=== PATIENT | female | born 1975 | race Caucasian/White ===

== ENCOUNTER 2023-12-14 13:55 | Outpatient (AMB) | payer MEDICARE, MEDICAID, SELFPAY ==
--- NOTE | 2023-12-14 13:58 | A.OFFVIS_ITS ---
Vital Signs 12/14/23 14:02 Height 5 ft 7 in Weight 140 lb BMI 21.9 BP 130/82 Blood Pressure Location Rt brachial Position Sitting Pulse 89 Pulse Source Pulse Oximeter Pulse Oximetry (%) 94 Oxygen Delivery Method Room Air Intake Visit Reasons: [id number] Intake Note: Patient presents for migraines. I get migraines all the time since the age of 18. Allergies No Known Allergies Allergy (Verified 12/14/23 14:03) Medication List - Last Reconciled 12/14/23 by RAGHAVENDRA Tran albuterol sulfate 90 mcg/actuation inhalation buprenorphine-naloxone 8-2 mg 2 film sublingual DAILY ibuprofen 800 mg PO TID promethazine 25 mg PO Q12H PRN HPI Comments Details: Right-handed 48-yr-old female presents for new pt evaluation of headache disorder. Pt reports she has had headaches since adolescence which became migraine after she had her 1st child at age 18. She was previosuly seen by ? Dr Finley a few yrs ago, but was lost to f/u w/ us as she thought Dr Finley retired. She returns in hopes of resuming of resuming Botox tx as this was effective in the past. She has recently rec'd cosmetic botox- states does this as it helps the migraines some but is not enough. PMH and ROS are notable for:? Musculoskeletal disorders or injury: Neck pain during migraines, but otherwise no usual neck pain. 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 May clench her teeth at times Caffeine use: 1 cups per day Substance use: none Exercise:?walks a lot Employment:?not currently working Headache questionnaire:? Previous work-up: None Typical headache characteristics: Prodrome symptoms: Denies Aura: Denies Pain intensity: severe Location, quality, characteristics: Starts with neck soreness and moves to a pressure in her one or both eyes and frontal region and becomes holocranial pain. Associated symptoms: photophobia, phonophobia, osmophobia, allodynia, nausea, vomiting, chills, lightheadedness, fatigue, cognitive difficulties, activity intolerance, Postdrome: feels off the next day Triggers: No known triggers. In the past had menstrual migraine, but not now. Time of day: Usually feels it coming on when she first wakes up. Duration and Frequency: 24 hrs, has > 20 migraine days per month How does headache impact your life? Cannot do her daily activities Current acute medication use/interventions: Ibuprofen 800mg- it does not help Current preventative medication use: None Non-pharmacological interventions: Rest in dark/quiet space, Ice. Heat to neck. [facility] Medical History (Updated 12/16/23 @ 16:04 by RAGHAVENDRA Tran) Opioid dependence on maintenance agonist therapy, no symptoms Palpitations Mold exposure Anxiety Asthma Surgical History (Updated 12/14/23 @ 14:05 by JG Mortensen) H/O shoulder surgery Social History (Updated 12/14/23 @ 14:05 by JG Mortensen) Alcohol intake: never Patient Tobacco Use Status: Never used Tobacco Physical Exam Vital Signs: Last Vital Signs Pulse 89 12/14/23 14:02 BP 130/82 12/14/23 14:02 Pulse Ox 94 12/14/23 14:02 Oxygen Delivery Method Room Air 12/14/23 14:02 BMI result Body Mass Index 21.9 Const Orientation/consciousness: patient oriented x3 Resp Effort & Inspection: normal respiratory effort and able to speak in complete sentences Neuro Other: Pt has limited eyebrow/frontal muscle movement- has recently rec'd cosmetic botox. No palpable scalp tenderness. Bilateral posterior cervical tightness. Cervical ROM: full Bilateral Spurling: elicits discomfort into bilateral upper traps. General: patient oriented x3 Cranial nerves: Yes CN's II-XII intact bilaterally Cognition (Neuro): normal cognition Gait exam (Neuro): Normal gait present Motor exam (neuro): 5/5 motor strength present throughout Deep tendon reflexes (DTR's): Right triceps reflex intensity grade: 2+, Left triceps reflex intensity grade: 2+, Rt Biceps (C5, C6): 2+, Left biceps reflex intensity grade: 2+, Right brachioradialis reflex intensity grade: 2+, Left brachioradialis reflex intensity grade: 2+, Right patellar reflex intensity grade: 2+ and Left patellar reflex intensity grade: 2+ Coordination: [id number] test normal, tandem gait normal and Romberg test negative Pupils: Normal pupillary reactivity/response: bilateral Psych Appearance: grossly normal Mental Status: mental status grossly normal Speech and movement: Normal speech and movement present Affect: normal affect Attitude: cooperative Thought process: Normal thought process present Assessment & Plan Assessment & Plan (1) Chronic migraine without aura: Code(s): G43.709 - Chronic migraine without aura, not intractable, without status mi grainosus Category: Medical (2) Cervical paraspinal muscle spasm: Code(s): M62.838 - Other muscle spasm Category: Medical Plan For overall headache management: * Optimize good self-care, including but not limited to maintaining a healthy diet, adequate fluid intake, adequate sleep, and engaging in regular physical activity. * Track headaches, especially after any treatment regimen changes. Aneumed is one of many headache tracking apps. For acute headache treatment: Discussed importance of taking acute medications at the first sign of headache, however stressed importance of avoiding acute medication overuse. Trial Zolmitriptan 5mg prn, MR in 2 hrs, Max 2 tabs per day. Ibuprofen prn. Potential adverse effects of triptans, including but not limited to nausea, fatigue, chest tightness/tingling (usually passes within a few minutes), medication overuse headaches. Previous acute migraine medication trials: Triptan: Sumatriptan 100mg- ineffective. Nurtec prn: ineffective. Believes she has tried otehrs- but cannot recall. Acute migraine medication contraindications: None at this time For headache prevention medication: Preventative medications should be taken routinely as prescribed for best effect, it may take several weeks for full effect to take effect. Start Riboflavin 400mg qam Resume Botox 155 units IM q 12 weeks, as this was previously effective- her last course of Botox for CM was > 2 yrs ago. Previous migraine prevention medication trials: Amitriptyline: did not tolerate. Propranolol: made her hypotensive. Topiramate: did not tolerate. CGRP Mab/antagonist: Emgality x's 2- ineffective. Magnesium- caused GI upset. Migraine prevention medication contraindications: Beta-blockers d/t asthma dx. Will schedule pt for Botox when prior auth approved. 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 Medications: New onabotulinumtoxinA (Botox) inject 155 units IM across forehead, scalp, and neck 200 units IM ONCE 1 ea 3RF 12 weeks G43.709 - Chronic migraine without aura, not intractable, without status migrainosus riboflavin (vitamin B2) 400 mg PO DAILY 30 tabs 6RF 30 days zolmitriptan take 1 tab at onset of headache; if no relief, may repeat 1 tab after at least 2 hrs; max = 2 tabs/24 hrs PO 12 tabs 3RF 30 days Coding Level of Care Code New Pt Level 4 (34018) Diagnoses Chronic migraine without aura G43.709 Cervical paraspinal muscle spasm M62.838
[2023-12-14 14:02] VITALS: BP 130/82; PULSE 89; O2SAT 94; BMI 21.9
== END 2023-12-14 15:13 | disposition home or self-care (01) ==
PROVIDERS: PCP Internal Medicine; Visit Provider Nurse Practitioner Family
DX: G43.709 Chronic migraine without aura, not intractable, without status migrainosus (principal); M62.838 Other muscle spasm
CPT/HCPCS: 99204

== ENCOUNTER → 2023-12-14 13:55 | Outpatient (BNVA) | payer MEDICARE, MEDICAID, SELFPAY | PROVIDERS: PCP Internal Medicine; Visit Provider Nurse Practitioner Family | DX: G43.709 Chronic migraine without aura, not intractable, without status migrainosus (principal); M62.838 Other muscle spasm | CPT/HCPCS: 99202 ==

== ENCOUNTER 2023-12-26 08:36 | Outpatient (AMB) | payer MEDICARE, MEDICAID, SELFPAY ==
--- NOTE | 2023-12-26 08:39 | A.OFFVIS_ITS ---
Vital Signs 12/26/23 08:40 Height 5 ft 7 in Weight 140 lb BMI 21.9 BP 106/68 Blood Pressure Location Rt brachial Position Sitting Respiration 16 Pulse 80 Pulse Source Pulse Oximeter Intake Visit Reasons: BOTOX Intake Note: Pt presents to the office for first Botox injections. 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 48y/o female comes for treatment of migraines with botox. she gets botox for cosmetic purposes- around her eyes - her last tretament was November 12 and she thinks she had 10 units ??? Most frequent reported adverse reactions following injection of botox for chronic migraine include neck pain (9%), headache(5%), eyelid ptosis(4%), migraine(4%), muscular weakness(4%), musculuskeletal stiffness(4%), bronchitis(3%), injection site pain (3%), musculoskeletal pain(3%), myalgia(3%), facial paresis(2%), HTN(2%) and muscle spasms(2%) were discussed in detail. ??? Botulinum toxin typeA 200units Lot no [id number] expiration Mar 2026 was diluted with 4 cc of normal saline . ??? Muscles injected- ??? Frontalis 4 sites ? Temporalis- 8 sites ??? Occipitalis- 6 sites ??? Cervical paraspinals- 4 sites ??? Trapezius- 6 sites- 10 units each ??? 5 units each ??? Total use- 170units ??? Discarded-30units [facility] Medical History (Updated 12/26/23 @ 09:00 by Kat Finley MD) Chronic migraine without aura, intractable, without status migrainosus Opioid dependence on maintenance agonist therapy, no symptoms Palpitations Mold exposure Anxiety Asthma Surgical History H/O shoulder surgery Social History Alcohol intake: never Patient Tobacco Use Status: Never used Tobacco Physical Exam Vital Signs: Last Vital Signs Pulse 80 12/26/23 08:40 Resp 16 12/26/23 08:40 BP 106/68 12/26/23 08:40 BMI result Body Mass Index 21.9 Const Orientation/consciousness: patient oriented x3 Resp Effort & Inspection: normal respiratory effort and able to speak in complete sentences Neuro Other: Pt has limited eyebrow/frontal muscle movement- has recently rec'd cosmetic botox. No palpable scalp tenderness. Bilateral posterior cervical tightness. Cervical ROM: full Bilateral Spurling: elicits discomfort into bilateral upper traps. General: patient oriented x3 Cranial nerves: Yes CN's II-XII intact bilaterally Cognition (Neuro): normal cognition Gait exam (Neuro): Normal gait present Motor exam (neuro): 5/5 motor strength present throughout Coordination: ghvwvs-ya-etbb test normal, tandem gait normal and Romberg test negative Pupils: Normal pupillary reactivity/response: bilateral Psych Appearance: grossly normal Mental Status: mental status grossly normal Speech and movement: Normal speech and movement present Affect: normal affect Attitude: cooperative Thought process: Normal thought process present Office Procedures Botulinum toxin Injection 37793 - Migraine Procedure code (CPT) selection complete Office Meds onabotulinumtoxinA 200 unit solution for injection Performing Provider: Kat Finley MD Performing Location: [facility] [place] [facility] Administered by: Kat Finley MD on 12/26/23 09:01 Dose Route Admin Location Dispensed Lot Number Expiration Date [facility] [employer] 170 unit IM 200 units [id number] 03/30/26 6992-3872-47 ALLERGAN/BOTOX Comments: see HPI Assessment & Plan Assessment & Plan (1) Chronic migraine without aura, intractable, without status migrainosus: Code(s): G43.719 - Chronic migraine without aura, intractable, without status migrainosus Category: Medical Plan Patient tolerated the procedure well she will call with any side effects Orders: Orders AMB Botulinum toxin Injection Today G43.719 - Chronic migraine without aura, intractable, without status migrainosus Medications: New onabotulinumtoxinA 200 units IM ONCE 1 ea 0RF migraine G43.719 - Chronic migraine without aura, intractable, without status migrainosus Coding Level of Care Code Est Pt Level 1 (61850) Diagnoses Chronic migraine without aura, intractable, without status migrainosus G43.719 CPT Codes Botox Injection - Botox 3: 73871 - Migraine ([id number])
[2023-12-26 08:40] VITALS: BP 106/68; PULSE 80; RESP 16; BMI 21.9
== END 2023-12-26 09:05 | disposition home or self-care (01) ==
PROVIDERS: PCP Internal Medicine; Visit Provider Psychiatry & Neurology Neurology
DX: G43.719 Chronic migraine without aura, intractable, without status migrainosus (principal)
CPT/HCPCS: 64615

== ENCOUNTER → 2023-12-26 08:36 | Outpatient (BNVA) | payer MEDICARE, MEDICAID, SELFPAY | PROVIDERS: PCP Internal Medicine; Visit Provider Psychiatry & Neurology Neurology | DX: G43.719 Chronic migraine without aura, intractable, without status migrainosus (principal) | CPT/HCPCS: 64615; 99211; J0585 ==

== ENCOUNTER 2024-04-03 10:47 | Outpatient (AMB) | payer MEDICARE, MEDICAID, SELFPAY ==
--- NOTE | 2024-04-03 10:48 | A.OFFVIS_ITS ---
Intake Visit Reasons: Botox Intake Note: Patint presents for botox injection Allergies No Known Allergies Allergy (Verified 04/03/24 10:54) Medication List - Last Reconciled 04/03/24 by Kat Finley MD albuterol sulfate 90 mcg/actuation inhalation buprenorphine-naloxone 8-2 mg 2 film sublingual DAILY ibuprofen 800 mg PO TID omeprazole 20 mg PO DAILY 30 days onabotulinumtoxinA (Botox) 200 units IM ONCE 12 weeks ondansetron HCl 4 mg PO Q6H PRN 30 days promethazine 25 mg PO Q12H PRN riboflavin (vitamin B2) 400 mg PO DAILY 30 days rizatriptan 5 - 10 mg (0.5 - 1 x 10 mg) PO Q2H PRN 21 days zolmitriptan take 1 tab at onset of headache; if no relief, may repeat 1 tab after at least 2 hrs; max = 2 tabs/24 hrs PO 30 days HPI Comments Details: ? 48y/o female comes for treatment of migraines with botox. ??? Most frequent reported adverse reactions following injection of botox for chronic migraine include neck pain (9%), headache(5%), eyelid ptosis(4%), migraine(4%), muscular weakness(4%), musculuskeletal stiffness(4%), bronchitis(3%), injection site pain (3%), musculoskeletal pain(3%), myalgia(3%), facial paresis(2%), HTN(2%) and muscle spasms(2%) were discussed in detail. ??? Botulinum toxin typeA 200units Lot no [id number] expiration June 2026 was diluted with 4 cc of normal saline . ??? Muscles injected- ??? Frontalis 4 sites websphere consultant 2 sites procerus 1 site ? Temporalis- 8 sites ??? Occipitalis- 6 sites ??? Cervical paraspinals- 4 sites ??? Trapezius- 6 sites- 10 units each ??? 5 units each ??? Total use- 185units ??? Discarded-15units [facility] Medical History Chronic migraine without aura, intractable, without status migrainosus Opioid dependence on maintenance agonist therapy, no symptoms Palpitations Mold exposure Anxiety Asthma Surgical History H/O shoulder surgery Social History Alcohol intake: never Patient Tobacco Use Status: Never used Tobacco Physical Exam Const Orientation/consciousness: patient oriented x3 Resp Effort & Inspection: normal respiratory effort and able to speak in complete sentences Neuro Other: No palpable scalp tenderness. Bilateral posterior cervical tightness. Cervical ROM: full General: patient oriented x3 Cranial nerves: Yes CN's II-XII intact bilaterally Cognition (Neuro): normal cognition Gait exam (Neuro): Normal gait present Motor exam (neuro): 5/5 motor strength present throughout Coordination: kwupyu-ag-najt test normal, tandem gait normal and Romberg test negative Pupils: Normal pupillary reactivity/response: bilateral Psych Appearance: grossly normal Mental Status: mental status grossly normal Speech and movement: Normal speech and movement present Affect: normal affect Attitude: cooperative Thought process: Normal thought process present Office Procedures Botulinum toxin Injection 96675 - Migraine Procedure code (CPT) selection complete Office Meds onabotulinumtoxinA 200 unit solution for injection Performing Provider: Kat Finley MD [place] [facility] [place] [facility] Administered by: Kat Finley MD on 04/03/24 11:23 Dose Route Admin Location Dispensed Lot Number Expiration Date [facility] 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 185 unit subcut 200 units [id number] ALLERGAN/BOTOX Comments: see HPI Assessment & Plan Assessment & Plan (1) Chronic migraine without aura, intractable, without status migrainosus: Code(s): G43.719 - Chronic migraine without aura, intractable, without status migrainosus Category: Medical Plan Patient tolerated the procedure well she will call with any side effects Orders: Orders AMB Botulinum toxin Injection Today G43.719 - Chronic migraine without aura, intractable, without status migrainosus Medications: New onabotulinumtoxinA 200 units subcut ONCE 1 ea 0RF migraine G43.719 - Chronic migraine without aura, intractable, without status migrainosus Coding Level of Care Code Est Pt Level 1 (67086) Diagnoses Chronic migraine without aura, intractable, without status migrainosus G43.719 CPT Codes Botox Injection - Botox 3: 35154 - Migraine ([id number])
--- OUTSIDE RECORDS SUMMARY | 2024-04-09 01:43 | XMS_ITS | Patient Health Record ---
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 Take with 2 tabs ibuprofen (400 mg). 04/01/2020 Active ALBUTEROL HFA 90 MCG INHALER MCG/ACTUATION 0 PRn for 30 *please review for potential update for e-prescription and drug interaction check* 03/31/2020 Active SYMBICORT 160-4.5 MCG INHALER MCG/ACTUATION 0 2 puffs bid for 30 *please review for potential update for e-prescription and drug interaction check* 03/31/2020 Active ALBUTEROL 5 MG/ML SOLUTION 0 Per nebulizer prn for 30 *please review for potential update for e-prescription and drug interaction check* 03/31/2020 Active Plan Of Treatment No Information Insurance Providers Payer Name Payer Address Payer Phone Subscriber Number Group Number Insured Name Patient Relationship to Insured Coverage Start Date Coverage End Date MEDICARE B [address] [place] [id number] Roma Flores Self - patient is the insured [id number] Medicaid [address] [place] [address] [phone] [id number] Roma Flores Self - patient is the insured
== END 2024-04-03 11:24 | disposition home or self-care (01) ==
PROVIDERS: PCP Internal Medicine; Visit Provider Psychiatry & Neurology Neurology
DX: G43.719 Chronic migraine without aura, intractable, without status migrainosus (principal)
CPT/HCPCS: 64615

== ENCOUNTER → 2024-04-03 10:47 | Outpatient (BNVA) | payer MEDICARE, MEDICAID, SELFPAY | PROVIDERS: PCP Internal Medicine; Visit Provider Psychiatry & Neurology Neurology | DX: G43.719 Chronic migraine without aura, intractable, without status migrainosus (principal) | CPT/HCPCS: 64615; 99211; J0585 ==

== ENCOUNTER 2024-06-23 13:26 | Outpatient (AMB) | payer MEDICARE, MEDICAID, SELFPAY ==
[2024-06-23 13:31] VITALS: BP 130/70; PULSE 91; O2SAT 100; BMI 22.6
--- NOTE | 2024-06-23 13:31 | MHC.OFFVIS ---
Vital Signs 06/23/24 13:31 Height 5 ft 7 in Weight 144 lb BMI 22.6 BP 130/70 Blood Pressure Location Lt brachial Position Sitting Pulse 91 Pulse Source Pulse Oximeter Pulse Oximetry (%) 100 Oxygen Delivery Method Room Air Intake Visit Reasons: 6mo F/U Accompanied by: Self / Same As Patient Allergies No Known Allergies Allergy (Verified 06/23/24 13:33) Medication List - Last Reconciled 06/23/24 by RAGHAVENDRA Tran albuterol sulfate 90 mcg/actuation inhalation buprenorphine-naloxone 8-2 mg 2 film sublingual DAILY diclofenac potassium 50 mg PO Q12H PRN 30 days omeprazole 20 mg PO DAILY 30 days onabotulinumtoxinA (Botox) 200 units IM ONCE 12 weeks ondansetron HCl 4 mg PO Q6H PRN 30 days promethazine 25 mg PO Q12H PRN riboflavin (vitamin B2) 400 mg PO DAILY 30 days rizatriptan 5 - 10 mg (0.5 - 1 x 10 mg) PO Q2H PRN 21 days scopolamine base 1 patch transdermal Q3D PRN ubrogepant (Ubrelvy) 50 - 100 mg (0.5 - 1 x 100 mg) PO ONCE PRN 30 days HPI Comments Details: Right-handed 48-yr-old female presents for follow-up of chronic migraine. Patient denies significant interval medical history changes. She is curious why she has migraine I had is that her younger sister who has migraine, has decreased severity compared to her. Since last visit, patient resumed Botox for chronic migraine treatment. She has had 2 Botox injection treatments- her next due in early June. Botox treatments have lessened frequency but have not eliminated migraines. Zolmatriptan and rizatriptan were ineffective. Ibuprofen is no longer effective. An interval order was placed for for Rimegepant, however patient never received this, but she had previously not had benefit from this. She did recently request a refill of scopolamine patches for nausea, which can be more helpful than promethazine. She does not take these together. Currently, migraines occur approximately weekly, with severe functional impact during an attack. She states onset of migraine symptoms often occurs in the morning, worsening by noon. She does endorse daytime sleepiness, sleep difficulties, some snoring. She describes her current typical migraine headache characteristics: Prodrome symptoms: Denies Aura: Denies Pain intensity: severe Location, quality, characteristics: Starts with neck soreness/tight neck and moves to a pressure in her one or both eyes and frontal region and becomes holocranial pain. Associated symptoms: Blurred vision, nasal stuffiness, photophobia, phonophobia, osmophobia, allodynia, nausea, vomiting, chills/goose bumps, lightheadedness, fatigue, cognitive difficulties, activity intolerance, Postdrome: feels off the next day How many migraine days prior to botox? Twenty days per month How long do the migraines last? One day Intensity of migraine? Severe ER visits related to migraine? None Effectiveness of botox from last two treatment(s)? Patient has had greater than 50% reduction in monthly migraine days. How many migraine days since receiving treatment: 4 Change? in intensity of migraine? Migraine tag continues to be severe Change in frequency of migraine? Greater than 50% reduction in monthly migraine days Change in use of acute medication for migraine? Decreased need for acute medication Change in quality of life? Improved quality of life and she does not have a migraine ER visits related to migraine? None Explanation for any gaps in treatment? Non applicable Have at least three months elapsed since last treatment (Last botox date - frequency of injections)- Botox injection frequency is every 12 weeks- she has had 2 interval Botox injections since her last visit with me in November of 2023, which were on 12/26/2023, 04/03/2024, If switching to dysport, xeomin, etc. - needs reason why switching to alternative- non applicable 12/14/2023 initial HPI: Right-handed 48-yr-old female presents for new pt evaluation of headache disorder. Pt reports she has had headaches since adolescence which became migraine after she had her 1st child at age 18. She was previously seen by ? Dr Finley a few yrs ago, but was lost to f/u w/ us as she thought Dr Finley retired. She returns in hopes of resuming of resuming Botox tx as this was effective in the past. She has recently rec'd cosmetic botox- states does this as it helps the migraines some but is not enough. PMH and ROS are notable for:? Musculoskeletal disorders or injury: Neck pain during migraines, but otherwise no usual neck pain. 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 May clench her teeth at times Caffeine use: 1 cups per day Substance use: none Exercise:?walks a lot Employment:?not currently working Headache questionnaire:? Previous work-up: None Typical headache characteristics: Prodrome symptoms: Denies Aura: Denies Pain intensity: severe Location, quality, characteristics: Starts with neck soreness and moves to a pressure in her one or both eyes and frontal region and becomes holocranial pain. Associated symptoms: photophobia, phonophobia, osmophobia, allodynia, nausea, vomiting, chills, lightheadedness, fatigue, cognitive difficulties, activity intolerance, Postdrome: feels off the next day Triggers: No known triggers. In the past had menstrual migraine, but not now. Time of day: Usually feels it coming on when she first wakes up. Duration and Frequency: 24 hrs, has > 20 migraine days per month How does headache impact your life? Cannot do her daily activities Current acute medication use/interventions: Ibuprofen 800mg- it does not help Current preventative medication use: None Non-pharmacological interventions: Rest in dark/quiet space, Ice. Heat to neck. [facility] Medical History Chronic migraine without aura, intractable, without status migrainosus Opioid dependence on maintenance agonist therapy, no symptoms Palpitations Mold exposure Anxiety Asthma Surgical History H/O shoulder surgery Social History Alcohol intake: never Patient Tobacco Use Status: Never used Tobacco Physical Exam Vital Signs: Last Vital Signs Pulse 91 06/23/24 13:31 BP 130/70 02/24/25 13:31 Pulse Ox 100 06/23/24 13:31 Oxygen Delivery Method Room Air 06/23/24 13:31 BMI result Body Mass Index 22.6 Const Orientation/consciousness: patient oriented x3 Resp Effort & Inspection: normal respiratory effort and able to speak in complete sentences Neuro General: patient oriented x3 Cranial nerves: Yes CN's II-XII intact bilaterally Cognition (Neuro): normal cognition Gait exam (Neuro): Normal gait present Motor exam (neuro): 5/5 motor strength present throughout Psych Appearance: grossly normal Mental Status: mental status grossly normal Speech and movement: Normal speech and movement present Affect: normal affect Assessment & Plan Assessment & Plan (1) Chronic migraine without aura: Code(s): G43.709 - Chronic migraine without aura, not intractable, without status migrainosus Category: Medical (2) Cervical paraspinal muscle spasm: Code(s): M62.838 - Other muscle spasm Category: Medical Plan Patient advised to undergo HST to assess for sleep apnea, as if present, may be exacerbating migraine. For overall headache management: Reviewed migraine diagnosis, simple pathophysiology, and migraine associated symptoms, such as nasal congestion, chills and goose bumps. Optimize good self-care, including but not limited to maintaining a healthy diet, adequate fluid intake, adequate sleep, and engaging in regular physical activity. Track headaches, especially after any treatment regimen changes. Migraine [employer] is one of many headache tracking apps. For acute headache treatment: Discontinue Zolmitriptan 5mg prn, MR in 2 hrs, Max 2 tabs per day. Discontinue Ibuprofen prn- no longer effective Trial Ubrogepant (Ubrelvy) 100mg tab, 1/2 - 1 tab (50-100mg) at onset of headache, may repeat in 2 hours. Max of 2 tabs (200mg) per 24 hours. Potential adverse effects, include but are not limited to fatigue, nausea, dry mouth, constipation. May adjunct Ubrelvy with diclofenac 50 mg p.o. b.i.d. p.r.n.. Scopolamine patch 75 mg transdermally q.72 hours p.r.n. Promethazine 25 mg p.r.n.- not to be taken with scopolamine patch. Ondansetron 4 mg q.6 hours p.r.n.- not to be taken with scopolamine patch or promethazine. Previous acute migraine medication trials: Triptan: Sumatriptan 100mg- ineffective. Zolmatriptan and rizatriptan were ineffective. Nurtec prn: ineffective. Acute migraine medication contraindications: None at this time For headache prevention medication: Continue Riboflavin 400mg qam Continue Botox 155 units IM q 12 weeks, as patient has had greater than 50% reduction in monthly migraine days. Previous migraine prevention medication trials: Amitriptyline: did not tolerate. Propranolol: made her hypotensive. Topiramate: did not tolerate. CGRP Mab/antagonist: Emgality x's 2- ineffective. Magnesium- caused GI upset. Migraine prevention medication contraindications: Beta-blockers d/t asthma dx. Regular follow-ups to assess treatment efficacy will be necessary. Pt to follow-up w/ ROOFING MACHINE TENDER in 6 months or sooner prn. Patient was informed and verbally consented to the use of an ambient scribe for clinic note documentation during this visit. Orders: Orders RT home sleep study Today G47.19 - Other hypersomnia, R06.83 - Snoring, R51.9 - Headache, unspecified Medications: New diclofenac potassium 50 mg PO Q12H 30 days PRN 30 tabs 3RF migraine headache ubrogepant (Ubrelvy) take at onset of migraine, may repeat in 2hrs (may take w/ Diclofenac) 50 - 100 mg (0.5 - 1 x 100 mg) PO ONCE 30 days PRN 16 tabs 6RF migraine headache Refilled riboflavin (vitamin B2) 400 mg PO DAILY 30 days 30 tabs 11RF ondansetron HCl 4 mg PO Q6H 30 days PRN 30 tabs 1RF nausea and vomiting Discontinued zolmitriptan Discontinued Reason: Doctor's Order take 1 tab at onset of headache; if no relief, may repeat 1 tab after at least 2 hrs; max = 2 tabs/24 hrs PO 30 days 12 tabs 3RF rimegepant (Nurtec ODT) Discontinued Reason: Doctor's Order 75 mg PO Q OTHER DAY PRN 14 tabs 4RF migraine headache Coding Level of Care Code Est Pt Level 4 (13556) Diagnoses Chronic migraine without aura G43.709 Cervical paraspinal muscle spasm M62.838 [place] Sleepiness Scale Questions Sitting and reading: moderate chance of dozing Watching TV: moderate chance of dozing Sitting inactive in a theater, movie etc.: slight chance of dozing As a passenger in a car for an hour without break: slight chance of dozing Lying down in the afternoon when circumstances permit: moderate chance of dozing Sitting and talking to someone: would never doze Sitting quietly after lunch without alcohol: moderate chance of dozing In a car, while stopped for a few minutes in the traffic: would never doze ESS < 10: normal, ESS > 12: pathologic: 10
--- OUTSIDE RECORDS SUMMARY | 2024-06-23 15:26 | XMS_ITS | Patient Health Record ---
Author Organization [facility] Address [address] [place] [address] Care Team Providers Care Quality Rn Name Role Phone Santo Bhandari Primary Care [...] B [address] [place], [place] [id number] Roma Flores Self - patient is the insured [place] Medicaid [address] [place] [address] [id number] Roma Flores Self - patient is the insured
--- OUTSIDE RECORDS SUMMARY | 2024-06-23 15:26 | XMS_ITS | Clinical Summary ---
Author Organization [employer] & [facility] lin Address [address] [facility] [employer] [address] Care Team Providers Care Carbon Furnace Operator Name Role Phone Kristin Schuster Primary Care Provide r Allergies Active Allergy Reactions Criticality Noted Date Comments Other 06/07/2022 Medications albuterol (PROVENTIL HFA;VENTOLIN HFA) 90 mcg/actuation inhaler 03/17/2019 Active buPROPion (WELLBUTRIN XL) 150 MG 24 hr tablet 01/08/2020 Active budesonide-formo teroL (SYMBICORT) 160-4.5 mcg/actuation inhaler Inhale 2 puffs 2 (two) times a day. 1 Inhaler 2 01/09/2020 Active busPIRone (BUSPAR) 10 MG tablet 02/03/2021 Active Immunizations Name Administration Dates Next Due Boostrix (Tdap) Prefilled Syringe 02/14/2017 Flucelvax Trivalent PFS IM; Without Preservative (18+ mos) 05/13/2018 Social History Tobacco Use Types Packs/Day Years Used Date Smoking Tobacco: Former Cigarettes Passive Smoke Exposure: Past Smokeless Tobacco: Never Tobacco Cessation:Counseling Given: Yes Comments:congratulated Comments No Sex and Gender Information Value Date Recorded Sex Assigned at Not on file Legal Sex Female 5:53 PM EDT Gender Identity Not on file Sexual Orientation Not on file Last Filed Vital Signs Vital Sign Reading Time Taken Comments Blood Pressure 132/82 06/07/2022 12:24 PM EST Pulse 88 06/07/2022 12:24 PM EST Temperature 36.6 ??C (97.8 ??F) 06/07/2022 12:[address] Respiratory Rate 18 06/07/2022 12:24 PM EST Oxygen Saturation 95% 06/07/2022 12:24 PM EST Inhaled Oxygen Concentration - - Weight 59 kg (130 lb) 12/20/2020 6:05 PM EDT Height 170.2 cm (5' 7 ) 12/20/2020 6:05 PM EDT Body Mass Index 20.36 12/20/2020 6:05 PM EDT Plan of Treatment Health Maintenance Due Date Last Done Comments Colorectal Cancer: COLONOSCO PY Screening every 10 yrs (or Modifier) 1973 Depression: Screening Annual ly using PHQ-2/9 in Adults 18 yrs or above (or HM Modifier)([facility]) 08/10/1991 Hepatitis C Virus Infection in Adolescents and Adults: Screening (or Modifier) ([facility]) 08/10/1991 SDSD Screening Reminder: Ethel luci for all adults ([facility]) 08/10/1991 Tobacco Smoking Cessation: i n Adults excluding Women: Behavioral and Pharmacotherapy Interventions ([facility]) 08/10/1991 Cervical Cancer Screenin 1-65 yrs of age (or Modifier) 1994 Cervical Cancer Screening: P ap every 3 yrs pts age 21-65 1994 Cervical Cancer: Pap Screeni ng with Modifier timing ([facility]) 1994 Cervical Cancer: hrHPV alone or with cotesting Pap for Pts 30-65yrs screening every 5yrs ([facility]) 1994 Colorectal Cancer Screening 45 -75 Yrs (or HM Modifier) 2018 Colorectal Cancer: FLEXIBLE SIGMOIDOSCOPY Screening every 5 yrs 2018 Colorectal Cancer: Fecal Immunochemical Test (FIT) Annually [facility] 2018 Colorectal Cancer: High-sens itivity gFOBT Screening Annually [facility] 2018 Colorectal Cancer: Stool Col oguard Screening every 3 yrs 2018 Colorectal Cancer:CT Colonog shiloh Screening every 5 yrs 2018 Lipid Screening: Every 5 yrs for Women aged 45+ (or HM Modifier) ([facility]) 08/10/2019 Breast Cancer: Screening Ethel ually age 50-74 yrs (or HM Modifier)([facility]) 08/10/2023 Lung Cancer: Screening Annua lly in adults aged 50 to 80 years (or HM Modifiers)([facility]) 08/10/2023 Zoster/Shingles Vaccine Seri es Screening: Adults aged 18+ yrs (or HM Modifiers)([facility]) (1 of 2) 08/10/2023 Flu Vaccination: Yearly for ages 18mos through 64 years (or Modifier)([facility]) 11/29/2023 05/13/2018 COVID-19 Vaccine Screening: Initial Series and Booster Status ([facility]) ( - 2023- season) 2023 DTaP/Tdap/Td Vaccines ([facility]) (2 - Td or Tdap) 02/14/2027 02/14/2017 Pneumococcal Vaccination Scr eening: Pts 0-19 & 19-64 yrs of age ([facility]) Aged Out 09/08/2015 No longer eligible b ased on patient's age to complete this topic Medical Devices Not on file Care Teams Carbon Furnace Operator Relationship Specialty Start Date End Date Kristin Schuster PA [address] [place] [phone] PCP - General Physician Pulling Machine Operator 01/04/19
== END 2024-06-23 14:39 | disposition home or self-care (01) ==
PROVIDERS: PCP Internal Medicine; Visit Provider Nurse Practitioner Family
DX: G43.709 Chronic migraine without aura, not intractable, without status migrainosus (principal); M62.838 Other muscle spasm
CPT/HCPCS: 99214

== ENCOUNTER → 2024-06-23 13:26 | Outpatient (BNVA) | payer MEDICARE, MEDICAID, SELFPAY | PROVIDERS: PCP Internal Medicine; Visit Provider Nurse Practitioner Family | DX: G43.709 Chronic migraine without aura, not intractable, without status migrainosus (principal); M62.838 Other muscle spasm | CPT/HCPCS: 99212 ==

== ENCOUNTER 2024-07-08 10:17 | Outpatient (AMB) | payer MEDICARE, MEDICAID, SELFPAY ==
[2024-07-08 10:27] VITALS: BP 142/98; PULSE 93; O2SAT 112; BMI 22.2
--- NOTE | 2024-07-08 10:27 | MHC.OFFVIS ---
Vital Signs 07/08/24 10:27 Height 5 ft 7 in Weight 142 lb BMI 22.2 BP 142/98 H Blood Pressure Location Rt brachial Position Sitting Pulse 93 Pulse Source Pulse Oximeter Pulse Oximetry (%) 112 H Oxygen Delivery Method Room Air Intake Visit Reasons: Botox Intake Note: Patient presents for botox injection. practice supplied Allergies No Known Allergies Allergy (Verified 07/08/24 10:28) Medication List - Last Reconciled 07/08/24 by Kat Finley MD albuterol sulfate 90 mcg/actuation inhalation buprenorphine-naloxone 8-2 mg 2 film sublingual DAILY diclofenac potassium 50 mg PO Q12H PRN 30 days gabapentin 100 - 300 mg (1 - 3 x 100 mg) PO BEDTIME 30 days omeprazole 20 mg PO DAILY 30 days onabotulinumtoxinA (Botox) 200 units IM ONCE 12 weeks ondansetron HCl 4 mg PO Q6H PRN 30 days promethazine 25 mg PO Q12H PRN riboflavin (vitamin B2) 400 mg PO DAILY 30 days rizatriptan 5 - 10 mg (0.5 - 1 x 10 mg) PO Q2H PRN 21 days scopolamine base 1 patch transdermal Q3D PRN ubrogepant (Ubrelvy) 50 - 100 mg (0.5 - 1 x 100 mg) PO ONCE PRN 30 days HPI Comments Details: ? 48y/o female comes for treatment of migraines with botox. ??? Most frequent reported adverse reactions following injection of botox for chronic migraine include neck pain (9%), headache(5%), eyelid ptosis(4%), migraine(4%), muscular weakness(4%), musculuskeletal stiffness(4%), bronchitis(3%), injection site pain (3%), musculoskeletal pain(3%), myalgia(3%), facial paresis(2%), HTN(2%) and muscle spasms(2%) were discussed in detail. ??? Botulinum toxin typeA 200units Lot no [id number] expiration July 2026 was diluted with 4 cc of normal saline . ??? Muscles injected- ??? Frontalis 4 sites procerus 1 site ? Temporalis- 8 sites ??? Occipitalis- 6 sites ??? Cervical paraspinals- 4 sites ??? Trapezius- 6 sites- 10 units each ??? 5 units each ??? Total use- 175units ??? Discarded-25units [facility] Medical History Chronic migraine without aura, intractable, without status migrainosus Opioid dependence on maintenance agonist therapy, no symptoms Palpitations Mold exposure Anxiety Asthma Surgical History H/O shoulder surgery Social History Alcohol intake: never Patient Tobacco Use Status: Never used Tobacco Physical Exam Vital Signs: Last Vital Signs Pulse 93 07/08/24 10:27 BP 142/98 H 07/08/24 10:27 Pulse Ox 112 H 07/08/24 10:27 Oxygen Delivery Method Room Air 07/08/24 10:27 BMI result Body Mass Index 22.2 Const Orientation/consciousness: patient oriented x3 Resp Effort & Inspection: normal respiratory effort and able to speak in complete sentences Neuro General: patient oriented x3 Cranial nerves: Yes CN's II-XII intact bilaterally Cognition (Neuro): normal cognition Gait exam (Neuro): Normal gait present Motor exam (neuro): 5/5 motor strength present throughout Psych Appearance: grossly normal Mental Status: mental status grossly normal Speech and movement: Normal speech and movement present Affect: normal affect Office Procedures Botulinum toxin Injection 25238 - Migraine Procedure code (CPT) selection complete Office Meds onabotulinumtoxinA 200 unit solution for injection Performing Provider: Kat Finley MD [place] [facility] Administered by: Kat Finley MD on 07/08/24 10:57 Dose Route Admin Location Dispensed Lot Number Expiration Date [facility] Phlebotomist Supervisor/Instructor 175 unit subcut 200 units [id number] ALLERGAN/BOTOX Comments: see hpi Assessment & Plan Assessment & Plan (1) Chronic migraine without aura, intractable, without status migrainosus: Code(s): G43.719 - Chronic migraine without aura, intractable, without status migrainosus Category: Medical Plan Patient tolerated the procedure well she will call with any side effects Orders: Orders AMB Botulinum toxin Injection Today G43.719 - Chronic migraine without aura, intractable, without status migrainosus Medications: New onabotulinumtoxinA 200 units subcut ONCE 1 ea 0RF Migraine G43.719 - Chronic migraine without aura, intractable, without status migrainosus Coding Level of Care Code Est Pt Level 1 (36808) Diagnoses Chronic migraine without aura, intractable, without status migrainosus G43.719 CPT Codes Botox Injection - Botox 3: 00211 - Migraine ([id number])
--- OUTSIDE RECORDS SUMMARY | 2024-07-08 12:09 | XMS_ITS | Clinical Summary ---
Author Organization [employer] & [facility] lin Address [address] [facility] [place] [place] [address] Care Team Providers Care Metal Technician Name Role Phone Kristin Schuster Primary Care [...] Adults 18 yrs or above (or HM Modifier)([facility]) 08/10/1991 Hepatitis C Virus Infection in Adolescents and Adults: Screening (or Modifier) ([facility]) 08/10/1991 SDCA Screening Reminder: Ethel luci for all adults ([facility]) 08/10/1991 Tobacco Smoking Cessation: i n Adults excluding Women: Behavioral and Pharmacotherapy Interventions ([facility]) 08/10/1991 Cervical Cancer Screenin 1-65 yrs of age (or Modifier) 1994 Cervical Cancer Screening: P ap every 3 yrs pts age 21-65 1994 Cervical Cancer: Pap Screeni ng with Modifier timing ([facility]) 1994 Cervical Cancer: hrHPV alone or with cotesting Pap for Pts 30-65yrs screening every 5yrs ([facility]) 1994 Colorectal Cancer Screening 45 -75 Yrs (or HM Modifier) 2018 Colorectal Cancer: FLEXIBLE SIGMOIDOSCOPY Screening every 5 yrs 2018 Colorectal Cancer: Fecal Immunochemical Test (FIT) Annually [facility] 2018 Colorectal Cancer: High-sens itivity gFOBT Screening Annually [facility] 2018 Colorectal Cancer: Stool Col oguard Screening every 3 yrs 2018 Colorectal Cancer:CT Colonog shiloh Screening every 5 yrs 2018 Lipid Screening: Every 5 yrs for Women aged 45+ (or HM Modifier) ([facility]) 08/10/2019 Breast Cancer: Screening Ethel ually age 50-74 yrs (or HM Modifier)([facility]) 08/10/2023 Lung Cancer: Screening Annua lly in adults aged 50 to 80 years (or HM Modifiers)([facility]) 08/10/2023 Zoster/Shingles Vaccine Seri es Screening: Adults aged 18+ yrs (or HM Modifiers)([facility]) (1 of 2) 08/10/2023 Flu Vaccination: Yearly for ages 18mos through 64 years (or Modifier)([facility]) 11/29/2023 05/13/2018 COVID-19 Vaccine Screening: Initial Series and Booster Status ([facility]) ( - 2023- season) 2023 DTaP/Tdap/Td Vaccines ([facility]) (2 - Td or Tdap) 02/14/2027 02/14/2017 Pneumococcal Vaccination Scr eening: Pts 0-19 & 19-64 yrs of age ([facility]) Aged Out 09/08/2015 No longer eligible b ased on patient's age to complete this topic Medical Devices Not on file Care Teams Metal Technician Relationship Specialty Start Date End Date Kristin Schuster PA [address] [place] [phone] PCP - General Physician Emergency Detail Driver 01/04/19
--- OUTSIDE RECORDS SUMMARY | 2024-07-08 12:10 | XMS_ITS | Clinical Summary ---
Author Organization [address] [address] Phone Care Team Providers Care Singing Waiter Or Waitress Name Role Phone Pcp, Not Required Primary Care Provider Unavaila ble Social History Tobacco Use Types Packs/Day Years Used Date Smoking Tobacco: Never Assessed Sex and Gender Information Value Date Recorded Sex Assigned at Not on file Gender Identity Not on file Sexual Orientation Not on file Plan of Treatment Not on file Medical Devices Not on file Roma Flores Personal/Family Self 1975 [address] [facility] [address] [place] [address] Roma Flores Personal/Family Self 1975 [address] [facility] [address] [place] [address] Roma Flores Personal/Family Self 1975 [address] [facility] [address] [place] [address] Care Teams Singing Waiter Or Waitress Relationship Specialty Start Date End Date Pcp, Not Required [address] [place] [address] PCP - General 11/27/16 Additional Source Comments The information contained in this document represents components of the legal health record. It is not the complete legal health record.[facility]
--- OUTSIDE RECORDS SUMMARY | 2024-07-08 12:10 | XMS_ITS | Encounter Summary ---
Author Organization [facility] Address [address] [place] [phone] Phone Care Team Providers Care Tenoner Operator Name Role Phone Pcp, Not Required Primary Care Provider Unavaila ble Encounter Details Date Type Department Care Team (Late st Contact Info) Description 11/28/2016 Ancillary Orders Colt Lou M.D. [address] [address] Colt Lou MD [address] [address] [email or web address] Malignant neoplasm of lower-inner quadrant of female breast, unspecified laterality Social History Tobacco Use Types Packs/Day Years Used Date Smoking Tobacco: Never Assessed Sex and Gender Information Value Date Recorded Sex Assigned at Not on file Gender Identity Not on file Sexual Orientation Not on file documented as of this encounter Plan of Treatment Not on file documented as of this encounter Visit Diagnoses Diagnosis Malignant neoplasm of lower-inner quadrant of female breast, unspecified laterality documented in this encounter Care Teams Tenoner Operator Relationship Specialty Start Date End Date Pcp, Not Required [address] [place] [address] PCP - General 11/27/16 documented as of this encounter Additional Source Comments The information contained in this document represents components of the legal health record. It is not the complete legal health record.[facility]
--- OUTSIDE RECORDS SUMMARY | 2024-07-08 12:10 | XMS_ITS | Patient Health Record ---
Author Organization [facility] Address [address] [place] [address] Care Team Providers Care Critical Care Clinical Nurse Specialist Name Role Phone Santo Bhandari Primary Care [...] B [address] [place] [phone] [id number] Roma Flores Self - patient is the insured [place] [employer] Medicaid [address] [place] [address] [phone] [id number] Roma Flores Self - patient is the insured
== END 2024-07-08 10:51 | disposition home or self-care (01) ==
LOC: HO.HSMS 10:18
PROVIDERS: PCP Internal Medicine; Visit Provider Psychiatry & Neurology Neurology
DX: G43.719 Chronic migraine without aura, intractable, without status migrainosus (principal)
CPT/HCPCS: 64615

== ENCOUNTER → 2024-07-08 10:17 | Outpatient (BNVA) | payer MEDICARE, MEDICAID, SELFPAY | PROVIDERS: PCP Internal Medicine; Visit Provider Psychiatry & Neurology Neurology | DX: G43.719 Chronic migraine without aura, intractable, without status migrainosus (principal) | CPT/HCPCS: 64615; 99211; J0585 ==

== ENCOUNTER 2024-10-14 10:44 | Outpatient (AMB) | payer MEDICARE, MEDICAID, SELFPAY ==
--- NOTE | 2024-10-14 10:45 | A.OFFVIS_ITS ---
Vital Signs 10/14/24 10:46 Height 5 ft 7 in BP 128/82 Blood Pressure Location Rt brachial Position Sitting Intake Visit Reasons: Botox Intake Note: Patient presents for botox injection. practice supplied Allergies No Known Allergies Allergy (Verified 10/14/24 10:50) Medication List - Last Reconciled 10/16/24 by Kat Finley MD albuterol sulfate 90 mcg/actuation inhalation buprenorphine-naloxone 8-2 mg 2 film sublingual DAILY diclofenac potassium 50 mg PO Q12H PRN 30 days gabapentin 100 - 300 mg (1 - 3 x 100 mg) PO BEDTIME 30 days omeprazole 20 mg PO DAILY 30 days onabotulinumtoxinA (Botox) 200 units IM ONCE 12 weeks ondansetron HCl 4 mg PO Q6H PRN 30 days promethazine 25 mg PO Q12H PRN riboflavin (vitamin B2) 400 mg PO DAILY 30 days rizatriptan 5 - 10 mg (0.5 - 1 x 10 mg) PO Q2H PRN 21 days scopolamine base 1 patch transdermal Q3D PRN ubrogepant (Ubrelvy) 50 - 100 mg (0.5 - 1 x 100 mg) PO ONCE PRN 30 days HPI Comments Details: ? 49y/o female comes for treatment of migraines with botox. ??? Most frequent reported adverse reactions following injection of botox for chronic migraine include neck pain (9%), headache(5%), eyelid ptosis(4%), migraine(4%), muscular weakness(4%), musculuskeletal stiffness(4%), bronchitis(3%), injection site pain (3%), musculoskeletal pain(3%), myalgia(3%), facial paresis(2%), HTN(2%) and muscle spasms(2%) were discussed in detail. ??? Botulinum toxin typeA 200units Lot no [id number] expiration January 2027 was diluted with 4 cc of normal saline . ??? Muscles injected- ??? Frontalis 4 sites procerus 1 site ? Temporalis- 8 sites ??? Occipitalis- 6 sites ??? Cervical paraspinals- 4 sites ??? Trapezius- 6 sites- 10 units each ??? 5 units each ??? Total use- 175units ??? Discarded-25units [facility] Medical History Chronic migraine without aura, intractable, without status migrainosus Opioid dependence on maintenance agonist therapy, no symptoms Palpitations Mold exposure Anxiety Asthma Surgical History H/O shoulder surgery Social History Alcohol intake: never Patient Tobacco Use Status: Never used Tobacco Physical Exam Vital Signs: Last Vital Signs BP 128/82 10/14/24 10:46 Const Orientation/consciousness: patient oriented x3 Resp Effort & Inspection: normal respiratory effort and able to speak in complete sentences Neuro General: patient oriented x3 Cranial nerves: Yes CN's II-XII intact bilaterally Cognition (Neuro): normal cognition Gait exam (Neuro): Normal gait present Motor exam (neuro): 5/5 motor strength present throughout Psych Appearance: grossly normal Mental Status: mental status grossly normal Speech and movement: Normal speech and movement present Affect: normal affect Office Procedures Botulinum toxin Injection 90762 - Migraine Procedure code (CPT) selection complete Office Meds onabotulinumtoxinA 200 unit solution for injection Performing Provider: Kat Finley MD Performing Location: [facility] Administered by: Kat Finley MD on 10/16/24 12:43 Dose Route Admin Location Dispensed Lot Number Expiration Date [facility] Check Airman 175 unit subcut 200 units [id number] ALLERGAN /BOTOX Total Dispensed Waste 200 units 12.5 % Comments: see hpi Assessment & Plan Assessment & Plan (1) Chronic migraine without aura, intractable, without status migrainosus: Code(s): G43.719 - Chronic migraine without aura, intractable, without status migrainosus Category: Medical Plan Patient tolerated the procedure well she will call with any side effects Orders: Orders AMB Botulinum toxin Injection 10/14/24 G43.719 - Chronic migraine without aura, intractable, without status migrainosus Coding Level of Care Code Est Pt Level 1 (37308) Diagnoses Chronic migraine without aura, intractable, without status migrainosus G43.719 CPT Codes Botox Injection - Botox 3: 96583 - Migraine ([id number])
[2024-10-14 10:46] VITALS: BP 128/82
--- OUTSIDE RECORDS SUMMARY | 2024-10-14 12:13 | XMS_ITS | Continuity of Care Document ---
Author Organization [place] [facility] [employer] [facility] [employer] [place] Address [address] [place] [phone] Assessment No assessment recorded. Plan of Treatment Reminders Order Date Submit Date Provider Last Modified By Organization Details Last Modified Time Details Appointments None recorded. Lab None recorded. Referral None recorded. Procedures None recorded. Surgeries None recorded. Imaging None recorded. Medication Orders triamcinolo ne acetonide 0.1 % lotion 2024 025 [employer] [id number], [address] [place], [place], [id number], 12:30:41 Patient TargetsNo targets recorded. Patient Instructions Encounter Date Encounter Id Patient Instructions Last Modified By Organization Details Last Modified Time 10/09/2024 [id number] hair loss from alopecia areata: care instructions [email or web address] Not available 10/09/2024 12:30:33 Thank you for your visit. It is our goal to provide you with the best possible care that a telehealth visit can allow. If any medications were discussed (either prescription or [id number]) , please review any potential side effects before taking the medication. If your symptoms get worse or do not improve, please call us back or seek in person care. We are available 20/11. Below is some general information about your condition, including medication recommendations. Please avoid any medications which have caused an adverse reaction or allergy in the past. MEDICATION REFILL You were seen today because you need a medication refill. Your prescription has been refilled so that you may continue your treatment without interruption. It is always best when a single physician is responsible for providing your refills. This is because that doctor would best understand your condition. That doctor knows why the medicine is being prescribed and whether or not there is reason to change medicines or stop the treatment. Sometimes refills may require additional tests or bloodwork - this may be ordered at the time of your visit or may be recommended for you to obtain prior to your next refill. Always try to make contact with the same doctor that started your medicine so they can give you additional refills. However if that is not possible you can schedule an appointment with us prior to running out of your medicine. Hope you do well! [email or web address] Not available 10/09/2024 12:29:49 Reason for Referral None Reported. Problems No Known Problems Medical Equipment None Reported. Allergies No known drug allergies Medications Name Sig Start Date Stop Date Status Note LastModified by Organization Details LastModified Time triamcinolone acetonide 0.1 % lotion APPLY A THIN LAYER TO THE AFFECTED AREA(S) BY TOPICAL ROUTE 2 TIMES PER DAY for 10 days per episode 2024 active Not Available Not Available Not Avai lable Vitals None Recorded Social History None recorded. Functional Status None recorded. Mental Status None recorded. Family History Nothing Reported. Medical History No medical history recorded. Gynecological HistoryNo gynecological history recorded. Obstetrics History GPAL:G 0 P 0 0 0 0 Past Encounters Encounter ID Performer Location Encounter Start Date Encounter Closed Date Diagnosis/Indication Diagnosis SNOMED-CT Code Diagnosis ICD10 Code Diagnosis Note [id number] Deepthi Mckee MD [address] [address] 10/09/2024 12:26:35 10/09/2024 12:36:05 Alopecia areata 41618454 L63.9 They have done well on the medication for a long period of time without side effectsIn so far as I can tell, all questions have been answered to the their satisfacti onFollow up with their treating doctor is recommende d. IF not anymore available, then set up an appointmen t with a new primary care or specialist doctor.I have requested that the patient be seen in person if side effects or other symptoms develop Health Concerns Section Related Observation LastModified by Organization Detai ls LastModified Time None Recorded Concern Status LastModified by Organization Details LastModified Time None Recorded Payers Encounter Date Sequence Insurance Name Policy Number Policy Ruiz Covered Member ID Ruiz Member ID Guarantor Name 10/09/2024 1 [place] [facility] (MEDICARE) Roma Flores [id number] Roma Flores 10/09/2024 2 *SELF PAY* Roma Flores [id number] Roma Flores Notes Date Note Type Note Provider Name and Address Organization Details Recorded Time 10/09/2024 text/html Call connected, pt greeted, identity ( name and ) /location confirmed, telephone number verified, telemedicine limitations reviewed and verbal consent obtained. Patient is advised to turn off the box/netflix/playsta tion,/laptops/deskt ops/ televisions/ipads/ other cell phones so that connections is good for the purpose of this visit. Clinician attests they are physically located in the following state at the time of visit:[place]. Telemedicine limitations reviewed, answered all questions the patient had about the telehealth interaction, and verbal consent obtained to treat. CC: patches of Nolan is a 49yo woman needs refill on Triamcinolone lotion for alopecia aerata. Last usage was 2 years ago, now restarted with symptoms. Covid19 test: Deepthi Mckee MD [address] [facility] [address], [address], [place] [facility] 10/09/2024 12:31:38 OBGyn Episode No OBEpisode recorded.
== END 2024-10-14 11:04 | disposition home or self-care (01) ==
LOC: HO.HSMS 10:44
PROVIDERS: PCP Internal Medicine; Visit Provider Psychiatry & Neurology Neurology
DX: G43.719 Chronic migraine without aura, intractable, without status migrainosus (principal)
CPT/HCPCS: 64615

== ENCOUNTER → 2024-10-14 10:44 | Outpatient (BNVA) | payer MEDICARE, MEDICAID, SELFPAY | PROVIDERS: PCP Internal Medicine; Visit Provider Psychiatry & Neurology Neurology | DX: G43.719 Chronic migraine without aura, intractable, without status migrainosus (principal) | CPT/HCPCS: 64615; 99211; J0585 ==

== ENCOUNTER 2025-01-13 11:23 | Outpatient (AMB) | payer MEDICARE, MEDICAID, SELFPAY ==
--- NOTE | 2025-01-13 11:22 | MHC.OFFVIS ---
Vital Signs 01/13/25 11:23 Height 5 ft 7 in Weight 127 lb BMI 19.9 BP 128/84 Blood Pressure Location Rt brachial Position Sitting Pulse 110 H Pulse Source Pulse Oximeter Pulse Oximetry (%) 96 Oxygen Delivery Method Room Air Intake Visit Reasons: Botox Intake Note: Botox Audio Video Mechanic Required: No Accompanied by: Self / Same As Patient Allergies No Known Allergies Allergy (Verified 01/13/25 11:22) Medication List - Last Reconciled 01/13/25 by Kat Finley MD albuterol sulfate 90 mcg/actuation inhalation azelastine 2 sprays intranasal BID gabapentin 100 - 300 mg (1 - 3 x 100 mg) PO BEDTIME 30 days omeprazole 20 mg PO DAILY 30 days onabotulinumtoxinA (Botox) 200 units IM ONCE 12 weeks ondansetron HCl 4 mg PO Q6H PRN 30 days promethazine 25 mg PO Q12H PRN riboflavin (vitamin B2) 400 mg PO DAILY 30 days scopolamine base 1 patch transdermal Q3D PRN ubrogepant (Ubrelvy) 50 - 100 mg (0.5 - 1 x 100 mg) PO ONCE PRN 30 days HPI Comments Details: ? 49y/o female comes for treatment of migraines with botox. ??? Most frequent reported adverse reactions following injection of botox for chronic migraine include neck pain (9%), headache(5%), eyelid ptosis(4%), migraine(4%), muscular weakness(4%), musculuskeletal stiffness(4%), bronchitis(3%), injection site pain (3%), musculoskeletal pain(3%), myalgia(3%), facial paresis(2%), HTN(2%) and muscle spasms(2%) were discussed in detail. ??? Botulinum toxin typeA 200units Lot no [id number] expiration Feb 2027 was diluted with 4 cc of normal saline . ??? Muscles injected- ??? Frontalis 4 sites procerus 1 site ? Temporalis- 8 sites ??? Occipitalis- 6 sites ??? Cervical paraspinals- 4 sites ??? Trapezius- 6 sites- 10 units each ??? 5 units each ??? Total use- 175units ??? Discarded-25units PFSH Medical History Chronic migraine without aura, intractable, without status migrainosus Opioid dependence on maintenance agonist therapy, no symptoms Palpitations Mold exposure Anxiety Asthma Surgical History H/O shoulder surgery Social History Alcohol intake: never Patient Tobacco Use Status: Never used Tobacco Physical Exam Vital Signs: Last Vital Signs Pulse 110 H 01/13/25 11:23 BP 128/84 01/13/25 11:23 Pulse Ox 96 01/13/25 11:23 Oxygen Delivery Method Room Air 01/13/25 11:23 BMI result Body Mass Index 19.9 Const Orientation/consciousness: patient oriented x3 Resp Effort & Inspection: normal respiratory effort and able to speak in complete sentences Neuro General: patient oriented x3 Cranial nerves: Yes CN's II-XII intact bilaterally Cognition (Neuro): normal cognition Gait exam (Neuro): Normal gait present Motor exam (neuro): 5/5 motor strength present throughout Psych Appearance: grossly normal Mental Status: mental status grossly normal Speech and movement: Normal speech and movement present Affect: normal affect Office Procedures Botulinum toxin Injection 06622 - Migraine Procedure code (CPT) selection complete Office Meds onabotulinumtoxinA 200 unit solution for injection Performing Provider: Kat Finley MD Performing Location[place] [facility] Administered by: Kat Finley MD on 01/13/25 11:45 Dose Route Admin Location Dispensed Lot Number Expiration Date [facility] Senior Game Advisor 175 unit subcut 200 units [id number] ALLERGAN/BOTOX Total Dispensed Waste 200 units 12.5 % Comments: see hpi Assessment & Plan Assessment & Plan (1) Chronic migraine without aura, intractable, without status migrainosus: Code(s): G43.719 - Chronic migraine without aura, intractable, without status migrainosus Category: Medical Plan Patient tolerated the procedure well she will call with any side effects Orders: Orders AMB Botulinum toxin Injection Today G43.719 - Chronic migraine without aura, intractable, without status migrainosus Coding Level of Care Code Est Pt Level 1 (88282) Diagnoses Chronic migraine without aura, intractable, without status migrainosus G43.719 CPT Codes Botox Injection - Botox 3: 31557 - Migraine ([id number])
[2025-01-13 11:23] VITALS: BP 128/84; PULSE 110; O2SAT 96; BMI 19.9
--- OUTSIDE RECORDS SUMMARY | 2025-01-13 15:30 | XMS_ITS | Clinical Summary ---
Author Organization [facility] Address [address] [place], [place] [phone] Phone Care Team Providers Care Car Rental Manager Name Role Phone Pcp, Not Required Primary Care Provider Unavaila ble Social History Tobacco Use Types Packs/Day Years Used Date Smoking Tobacco: Never Assessed Comments Unknown Sex and Gender Information Value Date Recorded Sex Assigned at Not on file Legal Sex Female 9:08 AM EDT Gender Identity Not on file Sexual Orientation Not on file Plan of Treatment Not on file Medical Devices Not on file Insurance [address] [place] [id number] [facility] [employer] TOGETHER [address] [place] [id number] [facility] [employer]Simple [facility] [employer] TOGETHER Advanced CirculatoryHEALTH [employer]GETHER HEALTH [employer]GETHER [address] [place] [phone] [facility] [place] [employer] [place] [employer] [facility] [place] [employer] TOGETHER [facility] [employer] TOGETHER Care Teams Car Rental Manager Relationship Specialty Start Date End Date Pcp, Not Required [address] [place] [address] PCP - General 11/27/16 Additional Source Comments The information contained in this document represents components of the legal health record. It is not the complete legal health record.[facility]
--- OUTSIDE RECORDS SUMMARY | 2025-01-13 15:30 | XMS_ITS | Clinical Summary ---
Author Organization [employer] [facility] Address [address] [facility] [place] [address] Care Team Providers Care Meals On Wheels Driver Name Role Phone Kristin Schuster Primary Care [...] (BUSPAR) 10 MG tablet 02/03/2021 Active Immunizations Immunization Administration Dates Next Due Boostrix (Tdap) Prefilled [...] 88 06/07/2022 12:24 PM EST Temperature 36.6 C (97.8 F) 06/07/2022 12:24 PM EST Respiratory Rate 18 06/07/2022 12:24 PM EST [...] Adults 18 yrs or above (or HM Modifier)([facility]) 08/10/1991 Hepatitis C Virus Infection in Adolescents and Adults: Screening (or Modifier) ([facility]) 08/10/1991 SDOH Screening Reminder: Ethle verma for all adults ([facility]) 08/10/1991 Tobacco Smoking Cessation: i n Adults excluding Women: Behavioral and Pharmacotherapy Interventions ([facility]) 08/10/1991 Cervical Cancer Screenin 1-65 yrs of age (or Modifier) 1994 Cervical Cancer Screening: P ap every 3 yrs pts age 21-65 1994 Cervical Cancer: Pap Screeni ng with Modifier timing ([facility]) 1994 Cervical Cancer: hrHPV alone or with cotesting Pap for Pts 30-65yrs screening every 5yrs ([facility]) 1994 Colorectal Cancer Screening 45 -75 Yrs (or HM Modifier) 2018 Colorectal Cancer: FLEXIBLE SIGMOIDOSCOPY Screening every 5 yrs 2018 Colorectal Cancer: Fecal Imm unochemical Test (FIT) Annually [facility] 2018 Colorectal Cancer: High-sens itivity gFOBT Screening Annually [facility] 2018 Colorectal Cancer: Stool Col oguard Screening every 3 yrs 2018 Colorectal Cancer:CT Colonog shiloh Screening every 5 yrs 2018 Breast Cancer: Screening Tehel ually age 50-74 yrs (or HM Modifier)([facility]) 08/10/2023 Lung Cancer: Screening Annua lly in adults aged 50 to 80 years (or HM Modifiers)([facility]) 08/10/2023 Pneumococcal Vaccination Scr eening: Patients 50+ yrs of age ([facility]) (2 of 2 - PCV) 08/10/2023 09/08/2015 Zoster/Shingles Vaccine Seri es Screening: Adults aged 18+ yrs (or HM Modifiers)([facility]) (1 of 2) 08/10/2023 Flu Vaccination: Yearly for ages 18mos through 64 years (or Modifier)([facility]) 11/28/2024 05/13/2018 COVID-19 Vaccine Screening: Initial Series and Booster Status ([facility]) (1 - 2023- season) 2024 DTaP/Tdap/Td Vaccines ([facility]) (2 - Td or Tdap) 02/14/2017 Pneumococcal Vaccination Scr eening: Pts 0-19 & 19-49 yrs of age ([facility]) Discontinued 09/08/2015 Medical Devices Not on file Care Teams Meals On Wheels Driver Relationship Specialty Start Date End Date Kristin Schuster PA [address] [place] [phone] PCP - General Physician Career Transition Specialist 01/04/19
--- OUTSIDE RECORDS SUMMARY | 2025-01-13 15:30 | XMS_ITS | Clinical Summary ---
Author Organization [facility] Address [address] [place] [address] Care Team Providers Care Miter Saw Operator Name Role Phone Robert Bernal Primary Care Provider [phone] Allergies No known active allergies Medications permethrin (ELIMITE) 5% cream Apply to affected area once 60 g 12/07/2024 Active Active Problems Problem Noted Date Diagnosed Date Opioid dependence 02/19/2013 Pain, joint, shoulder 06/28/2009 Encounters Date Type Department Care Team Description 12/07/2024 9:27 PM EDT - 12/07/2024 10:04 PM EDT Emergency [facility] Emergency Department [address] [place] [id number] Jalen Stevens MD [place] (Primary Dx) Discharge Disposition: Home or Self Care (01) from Last 3 Months Social History Tobacco Use Types Packs/Day Years Used Date Smoking Tobacco: Every Day Comments:: Comments Unknown Sex and Gender Information Value Date Recorded Sex Assigned at Female 12/07/2024 9:24 PM EDT Legal Sex Female 12:09 AM EDT Gender Identity Female 12/07/2024 9:24 PM EDT Sexual Orientation Not on file Last Filed Vital Signs Vital Sign Reading Time Taken Comments Blood Pressure 154/91 12/07/2024 9:31 PM EDT Pulse 85 12/07/2024 9:31 PM EDT Temperature 36.8 C (98.2 F) 12/07/2024 9:31 PM EDT Respiratory Rate 16 12/07/2024 9:31 PM EDT Oxygen Saturation 99% 12/07/2024 9:31 PM EDT Inhaled Oxygen Concentration - - Weight 61.2 kg (135 lb) 12/07/2024 9:31 PM EDT Height 170.2 cm (5' 7 ) 12/07/2024 9:31 PM EDT Body Mass Index 21.14 12/07/2024 9:31 PM EDT Plan of Treatment Health Maintenance Due Date Last Done Comments Cervical Cancer Screening 1973 Cologuard 1973 Colon Cancer Screening 1975 Colonoscopy 1973 FOBT / Fit Test 1973 HIV Screening 1973 HPV and Pap Smear 1973 Hepatitis C Screening 1973 Pap Smear 1973 Sigmoidoscopy 1973 Medicare AWV 1974 Hepatitis B Vaccines (1 of 3 - 19+ 3-dose series) 1992 Mammogram 2013 Pneumococcal Vaccine: 50+ Ye ars (2 of 2 - PCV) 09/07/2016 09/08/2015 CT Lung Cancer Screening (Baseline) 08/10/2023 Zoster Vaccines (1 of 2) 08/10/2023 Alcohol/Substance Use Screening 04/30/2024 Depression Screening and Follow-Up 04/30/2024 Social Drivers of Health Annual Screening 04/30/2024 COVID-19 Vaccine (1 - 2023- season) 2024 Influenza Vaccine (#1) 2024 05/13/2018, 2015 DTaP,Tdap,and Td Vaccines (2 - Td or Tdap) 02/14/2027 02/14/2017 RSV Vaccine (60+ years old a nd patients) (1 - 1-dose 75+ series) 2048 Insurance [employer] MEDICARE Care Teams Miter Saw Operator Relationship Specialty Start Date End Date Robert Bernal [address] [place] [phone] PCP - General Internal Medicine 12/07/24
--- OUTSIDE RECORDS SUMMARY | 2025-01-13 15:30 | XMS_ITS | Patient Health Record ---
Author Organization [facility] Address [address] [place] [address] Care Team Providers Care Retail Advertising Account Executive Name Role Phone Santo Bhandari Primary Care Provider Robert Bernal Unavailable Unavailable Reason For Referral No Information Medications Medication SIG (Take, Route, Frequency, Duration) Notes Start Date End Date Status Ibuprofen 800 MG 0 Oral PRn, ineff; Duration: 30 03/31/2020 Active Rizatriptan Benzoate 10 MG 12 Oral 1 tab prn migraine, may repeat prn after 2 hours. Take with 2 tabs ibuprofen (400 mg). 04/01/2020 Active ALBUTEROL HFA 90 MCG INHALER MCG/ACTUATION 0 PRn; Duration: 30 *please review for potential update for e-prescription and drug interaction check* 03/31/2020 Active SYMBICORT 160-4.5 MCG INHALER MCG/ACTUATION 0 2 puffs bid; Duration: 30 *please review for potential update for e-prescription and drug interaction check* 03/31/2020 Active ALBUTEROL 5 MG/ML SOLUTION 0 Per nebulizer prn; Duration: 30 *please review for potential update for e-prescription and drug interaction check* 03/31/2020 Active Plan Of Treatment No Information Insurance Providers Payer Name Payer Address Payer Phone Subscriber Number Group Number Insured Name Patient Relationship to Insured Coverage Start Date Coverage End Date MEDICARE B [address] [place], [place] [id number] [phone] [id number] Roma Flores Self - patient is the insured [place] [id number] [employer] [address] [place] [address] [id number] Roma Flores Self - patient is the insured
--- OUTSIDE RECORDS SUMMARY | 2025-01-13 15:30 | XMS_ITS | Encounter Summary ---
Author Organization [facility] Address [address] [address] [place] [phone] Phone Care Team Providers Care Dietary Tech Name Role Phone Pcp, Not Required Primary Care Provider Unavaila ble Encounter Details Date Type Department Care Team ([facility] st Contact Info) Description 11/28/2016 Ancillary Orders Colt Lou M.D. [address] [address] Colt Lou MD [address] [address] [email or web address] Malignant neoplasm of lower-inner quadrant of female [...] laterality documented in this encounter Care Teams Dietary Tech Relationship Specialty Start Date End Date Pcp, Not Required [address] [place] [phone] PCP - General 11/27/16 documented as of this encounter Additional Source Comments The information contained in this document represents components of the legal health record. It is not the complete legal health record.[facility]
== END 2025-01-13 11:45 | disposition home or self-care (01) ==
LOC: HO.HSMS 11:24
PROVIDERS: PCP Internal Medicine; Visit Provider Psychiatry & Neurology Neurology
DX: G43.719 Chronic migraine without aura, intractable, without status migrainosus (principal)
CPT/HCPCS: 64615

== ENCOUNTER → 2025-01-13 11:23 | Outpatient (BNVA) | payer MEDICARE, MEDICAID, SELFPAY | PROVIDERS: PCP Internal Medicine; Visit Provider Psychiatry & Neurology Neurology | DX: G43.719 Chronic migraine without aura, intractable, without status migrainosus (principal) | CPT/HCPCS: 64615; 99211; J0585 ==

== ENCOUNTER 2025-04-14 14:57 | Outpatient (AMB) | payer MEDICARE, MEDICAID, SELFPAY ==
--- NOTE | 2025-04-14 15:04 | MHC.OFFVIS ---
Vital Signs 04/14/25 15:05 Height 5 ft 7 in Weight 125 lb 4 oz BMI 19.6 BP 130/82 Blood Pressure Location Rt brachial Position Sitting Pulse 110 H Pulse Source Pulse Oximeter Pulse Oximetry (%) 94 Oxygen Delivery Method Room Air Intake Visit Reasons: Botox Intake Note: Botox 200 Hand Packer/Packager Required: No Accompanied by: Self / Same As Patient Allergies No Known Allergies Allergy (Verified 04/14/25 15:05) HPI Comments Details: ? 49y/o female comes for treatment of migraines with botox. ??? Most frequent reported adverse reactions following injection of botox for chronic migraine include neck pain (9%), headache(5%), eyelid ptosis(4%), migraine(4%), muscular weakness(4%), musculuskeletal stiffness(4%), bronchitis(3%), injection site pain (3%), musculoskeletal pain(3%), myalgia(3%), facial paresis(2%), HTN(2%) and muscle spasms(2%) were discussed in detail. ??? Botulinum toxin typeA 200units Lot no [id number] expiration June 2027 was diluted with 4 cc of normal saline . ??? Muscles injected- ??? Frontalis 4 sites procerus 1 site ? Temporalis- 8 sites ??? Occipitalis- 6 sites ??? Cervical paraspinals- 4 sites ??? Trapezius- 6 sites- 10 units each ??? 5 units each ??? Total use- 175units ??? Discarded-25units [facility] Medical History Chronic migraine without aura, intractable, without status migrainosus Opioid dependence on maintenance agonist therapy, no symptoms Palpitations Mold exposure Anxiety Asthma Surgical History H/O shoulder surgery Social History Alcohol intake: never Patient Tobacco Use Status: Never used Tobacco Physical Exam Vital Signs: Last Vital Signs Pulse 110 H 04/14/25 15:05 BP 130/82 04/14/25 15:05 Pulse Ox 94 04/14/25 15:05 Oxygen Delivery Method Room Air 04/14/25 15:05 BMI result Body Mass Index 19.6 Const Orientation/consciousness: patient oriented x3 Resp Effort & Inspection: normal respiratory effort and able to speak in complete sentences Neuro General: patient oriented x3 Cranial nerves: Yes CN's II-XII intact bilaterally Cognition (Neuro): normal cognition Gait exam (Neuro): Normal gait present Motor exam (neuro): 5/5 motor strength present throughout Psych Appearance: grossly normal Mental Status: mental status grossly normal Speech and movement: Normal speech and movement present Affect: normal affect Office Procedures Botulinum toxin Injection 14925 - Migraine Procedure code (CPT) selection complete Office Meds onabotulinumtoxinA 200 unit solution for injection Performing Provider: Kat Finley MD Performing Location: [facility] Administered by: Kat Finley MD on 04/14/25 15:36 Dose Route Admin Location Dispensed Lot Number Expiration Date [facility] Maintenance Worker Swimming Pool 185 unit subcut 200 units [id number] ALLERGAN/BOTOX Total Dispensed Waste 200 units 7.5 % Comments: see HPI Assessment & Plan Assessment & Plan (1) Chronic migraine without aura, intractable, without status migrainosus: Code(s): G43.719 - Chronic migraine without aura, intractable, without status migrainosus Category: Medical Plan Patient tolerated the procedure well she will call with any side effects Orders: Orders AMB Botulinum toxin Injection Today G43.719 - Chronic migraine without aura, intractable, without status migrainosus Coding Level of Care Code Est Pt Level 1 (22510) Diagnoses Chronic migraine without aura, intractable, without status migrainosus G43.719 CPT Codes Botox Injection - Botox 3: 59766 - Migraine ([id number])
[2025-04-14 15:05] VITALS: BP 130/82; PULSE 110; O2SAT 94; BMI 19.6
--- OUTSIDE RECORDS SUMMARY | 2025-04-14 19:18 | XMS_ITS | Clinical Summary ---
Author Organization [address] [facility] Address [address] [place] [address] Phone Care Team Providers Care Customer Success Advocate Name Role Phone Robert Bernal DO Primary Care Provider [phone] Encounters Date Type Department Care Team Description 02/26/2025 12:30 PM EDT Lab Draw Station - [address] [address] Laboratory tests ordered as part of a complete physical exam (CPE) (Primary Dx); Enlarged thyroid; Anxiety; Asthma; Hepatitis C virus; Fatty liver; IGT (impaired glucose tolerance); Abdominal migraine from Last 3 Months Surgical History Surgery Date Site/Laterality Comments OTHER SURGICAL HISTORY 2009 Left PROCEDURE: [place] SURGICAL ARTHROSCOPY SHOULDER W/ROTATOR CUFF RPR; COMMENT: also 2010 and 2012 TUBAL LIGATION 1998 Bilateral PROCEDURE: HISTORICAL TUBAL LIGATION; COMMENT: Has 2 daughters 21 and 25 OTHER SURGICAL HISTORY 2016 Bilateral PROCEDURE: BREAST PROTHESIS; COMMENT: breast augumentation wiht implants Medical History Medical History Date Comments Asthma 2004 DX:Asthma Palpitations DX:Palpitations Atypical chest pain DX:Atypical chest pain Impaired glucose tolerance DX:Im paired glucose tolerance Positive hepatitis C antibody test 05/31/2020 DX:Positive hepatitis C antibody test Family History Medical History Relation Name Comments Asthma Brother 1 Asthma Brother 2 Asthma Daughter 1 Asthma Daughter 2 COPD Father Depression Father Other: smoker Father Other: Unknown Maternal Grandfather Diabetes Maternal Grandmother Other: unkknown Paternal Grandmother Asthma Sister 1 Migraines Sister 1 Migraines Sister 2 Asthma Sister 3 Relation Name Status Comments Brother 1 Alive Brother 2 Alive Daughter 1 Alive Daughter 2 Alive Father Maternal Grandfather Maternal Grandmother Mother Alive Paternal Grandfather Paternal Grandmother Sister 1 Alive Sister 2 Alive Sister 3 Alive Social History Tobacco Use Types Packs/Day Years Used Date Smoking Tobacco: Every Day Cigarettes 1 36.7 Started: 1988 Smokeless Tobacco: Never Alcohol Use Standard Drinks/Week Comments No 0 (1 standard drink = 0.6 oz pur e alcohol) Comments Unknown Sex and Gender Information Value Date Recorded Sex Assigned at Not on file Legal Sex Female 12:41 PM EST Gender Identity Not on file Sexual Orientation Not on file Plan of Treatment Health Maintenance Due Date Last Done Comments Breast Cancer Screening 1973 Colorectal Cancer Screening: Colonoscopy 1973 Hepatitis B Vaccines (1 of 3 - 19+ 3-dose series) 1992 Cervical Cancer Screening: Pap Smear 1994 Pneumococcal Vaccine: 50+ Years (2 of 2 - PCV) 09/07/2016 09/08/2015 HIV Screening 03/28/2022 Medicare Annual Wellness Visit 03/28/2022 Social Influencers of Health Screening 03/28/2022 RSV Immunization Adult Patients (1 - Risk 50-74 years 1-dose series) 08/10/2023 Zoster Vaccines (1 of 2) 08/10/2023 Depression Screening 04/30/2024 COVID-19 Vaccine (2 - 2024- season) 2024 08/28/2020 Influenza Vaccine (#1) 2024 , 02/12/2019, 05/13/2018, Additional history exists Cholesterol Screening (Lipid Panel) 02/26/2030 02/26/2025 DTaP,Tdap,and Td Vaccines (3 - Td or Tdap) 09/06/2033 09/07/2023, 02/14/2017 Hepatitis A Vaccines Completed 03/29/2021, 08/18/19 21 Hepatitis C Screening Completed 01/23/2025 , 01/23/2025, 11/11/2024 HIB Vaccines Aged Out No longer eligi ble based on patient's age to complete this topic HPV Vaccines Aged Out No longer eligi ble based on patient's age to complete this topic IPV Vaccines Aged Out No longer eligi ble based on patient's age to complete this topic MMR Vaccines Aged Out No longer eligi ble based on patient's age to complete this topic Meningococcal ACWY Vaccine Aged Out N o longer eligible based on patient's age to complete this topic Meningococcal B Vaccine Aged Out No l onger eligible based on patient's age to complete this topic RSV Immunization Patients Under 20 months Aged Out No longer eligible based on patient's age to complete this topic Varicella Vaccines Aged Out No longer eligible based on patient's age to complete this topic Procedures Procedure Name Priority Date/Time Associated Diagnosis Comments THYROXINE FREE Routine 02/26/2025 12:30 PM EDT Laboratory tests ordered as part of a complete physical exam (CPE) Enlarged thyroid Anxiety Asthma Hepatitis C virus Fatty liver IGT (impaired glucose tolerance) Abdominal migraine HEMOGLOBIN A1C Routine 02/26/2025 12:30 PM EDT Laboratory tests ordered as part of a complete physical exam (CPE) Enlarged thyroid Anxiety Asthma Hepatitis C virus Fatty liver IGT (impaired glucose tolerance) Abdominal migraine THYROID STIMULATING HORMONE Routine 02/26/2025 12:30 PM EDT Laboratory tests ordered as part of a complete physical exam (CPE) Enlarged thyroid Anxiety Asthma Hepatitis C virus Fatty liver IGT (impaired glucose tolerance) Abdominal migraine LIPID PANEL WITH REFLEX TO DIRECT LDL Routine 02/26/2025 12:30 PM EDT Laboratory tests ordered as part of a complete physical exam (CPE) Enlarged thyroid Anxiety Asthma Hepatitis C virus Fatty liver IGT (impaired glucose tolerance) Abdominal migraine AST, ALT, BILIRUBIN ELR STATE REPORTABLES Routine 01/23/2025 11:40 AM EDT Rash [employer] acne CBC WITH AUTO DIFFERENTIAL Routine 01/23/2025 11:40 AM EDT Rash [employer] acne JOSE IFA WITH TITER AND PATTERN Routine 01/23/2025 11:40 AM EDT Rash [employer] acne C-REACTIVE PROTEIN Routine 01/23/2025 11 :40 AM EDT Rash [employer] acne SEDIMENTATION RATE Routine 01/23/2025 11 :40 AM EDT Rash [employer] acne HEPATITIS C VIRUS QUANTITATIVE PCR Routine 01/23/2025 11:40 AM EDT Rash [employer] acne HEPATITIS C ANTIBODY Routine 01/23/2025 11:40 AM EDT Rash [employer] acne HEPATIC FUNCTION PANEL Routine 11:40 AM EDT Rash [employer] acne CBC AND DIFFERENTIAL Routine 01/23/2025 11:40 AM EDT Rash [employer] acne BASIC METABOLIC PANEL Routine 01/23/2025 11:40 AM EDT Rash Demodex acne from Last 3 Months Results * Lipid panel with reflex to direct LDL (02/26/2025 12:30 PM EDT) Cholesterol 160 0 - 200 mg/dL LAB CHEMISTRY METHOD 02/26/2025 4:02 PM [facility] Triglycerides 70 0 - 150 mg/dL LAB CHEMISTRY METHOD 02/26/2025 4:02 PM [facility] HDL 67 >=40 mg/dL LAB CHEMISTRY METHOD 02/26/2025 4:02 PM [facility] LDL Calculated 79 0 - 100 mg/dL LAB CHEMISTRY METHOD 02/26/2025 4:02 PM [facility] Comment:Estimated LDL Calcul ated using equation: Total cholesterol - HDL cholesterol - (Triglycerides/5) VLDL Cholesterol Lakhwinder 14 mg/dL LAB CHEMISTRY METHOD 02/26/2025 4:02 PM [facility] Non HDL Chol. (LDL+VLDL) 93 <145 mg/dL LAB CHEMISTRY METHOD 02/26/2025 4:02 PM [facility] Chol/HDL Ratio 2.4 0.0 - 4.4 LAB CHEMISTRY METHOD 02/26/2025 4:02 PM [facility] Blood Venous blood specimen / Unknown Venipuncture / Unknown 02/26/2025 12:30 PM EDT 02/26/2025 12:30 PM EDT us Win Godwin LAB BLOOD ORDERABLES Final Resul t Performing Organization Address City/[facility]/ZIP Co de Phone Number [facility] [address] [place] [address], [place] [phone] * Thyroid stimulating hormone (02/26/2025 12:30 PM EDT) TSH 1.68 0.40 - 4.00 mcIU/mL LAB CHEMISTRY METHOD 02/26/2025 4:21 PM EDT [facility] Blood Venous blood specimen / Unknown Venipuncture / Unknown 02/26/2025 12:30 PM EDT 02/26/2025 12:30 PM EDT Win Minnie LAB BLOOD ORDERABLES Final Resul t Performing Organization Address [facility] Co de Phone Number [facility] [address] [place] [address], [place] [phone] * Thyroxine free (02/26/2025 12:30 PM EDT) Free T4 1.04 0.70 - 1.80 ng/dL LAB CHEMISTRY METHOD 02/26/2025 4:20 PM EDT [facility] Blood Venous blood specimen / Unknown Venipuncture / Unknown 02/26/2025 12:30 PM EDT 02/26/2025 12:30 PM EDT Win Citlali LAB BLOOD ORDERABLES Final Resul t Performing Organization Address City/[facility]/ZIP Co de Phone Number [facility] [address] [place] [address], [place] [phone] * Hemoglobin A1c (02/26/2025 12:30 PM EDT) Hemoglobin A1C 5.9 <6.5 % LAB CHEMISTRY METHOD 02/26/2025 6:09 PM EDT [facility] Mean Bld Glu Estim. 123 mg/dL LAB CHEMISTRY METHOD 02/26/2025 6:09 PM EDT [facility] Blood Venous blood specimen / Unknown Venipuncture / Unknown 02/26/2025 12:30 PM EDT 02/26/2025 12:30 PM EDT Win Hartman LAB BLOOD ORDERABLES Final Resul t Performing Organization Address City/[facility]/ZIP Co de Phone Number [facility] [address] [place] [address], [place] [phone] * (ABNORMAL) Hepatitis C antibody (01/23/2025 11:40 AM EDT) Pathologist [facility] Hepatitis C Antibody Positive (A) Negative LAB CHEMISTRY METHOD 01/23/2025 5:55 PM EDT [facility] Comment:If confirmation of t his positive HCV Ab screening test is needed, please redraw and order HCV Viral Load. Note--> This test may not be added on due to different specimen requirements. Blood Venous blood specimen / Unknown Venipuncture / Unknown 01/23/2025 11:40 AM EDT 01/23/2025 11:40 AM EDT Win Hartman LAB BLOOD ORDERABLES Final Resul t Performing Organization Address City/[facility]/ZIP Co de Phone Number [facility] [address] [place] [address], * AST, ALT, Bilirubin ELR state reportables (01/23/2025 11:40 AM EDT) Pathologist [facility] ALT (SGPT) 28 10 - 60 unit/L LAB CHEMISTRY METHOD 01/23/2025 5:58 PM EDT [facility] AST (SGOT) 15 10 - 42 unit/L LAB CHEMISTRY METHOD 01/23/2025 5:58 PM EDT [facility] Bilirubin, Direct <0.1 0.0 - 0.3 mg/dL LAB CHEMISTRY METHOD 01/23/2025 5:58 PM EDT [facility] Total Bilirubin 0.3 0.0 - 1.4 mg/dL LAB CHEMISTRY METHOD 01/23/2025 5:58 PM EDT [facility] Platelets 353 K/mcL LAB HEMETOLOGY METHOD 01/23/2025 5:58 PM EDT [facility] Blood Venous blood specimen / Unknown Venipuncture / Unknown 01/23/2025 11:40 AM EDT 01/23/2025 11:40 AM EDT [facility] LAB BLOOD ORDERABLES Final Resul t Performing Organization Address City/[facility]/ZIP Co de Phone Number [facility] [address] [place] [address], [place] [phone] * JOSE IFA with titer and pattern (01/23/2025 11:40 AM EDT) [facility] JOSE Negative Negative 01/26/2025 2:20 PM EDT [facility] Comment:JOSE performed by ind irect immunofluorescence (IFA) using HEp-2 substrate. Blood Venous blood specimen / Unknown Venipuncture / Unknown 01/23/2025 11:40 AM EDT 01/23/2025 11:40 AM EDT Win [employer] LAB BLOOD ORDERABLES Final Resul t Performing Organization Address City/[facility]/ZIP Co de Phone Number [facility] [address] [place] [address], [place] [phone] * Hepatitis C virus quantitative molecular study (01/23/2025 11:40 AM EDT) [facility] HCV Qual Interp Not Detected Not Detected LAB MOLECULAR DIAGNOSTICS METHOD 01/27/2025 11:19 AM EDT [facility] Comment:HCV RNA not detected , unable to report quantitative results. Blood Venous blood specimen / Unknown Venipuncture / Unknown 01/23/2025 11:40 AM EDT 01/23/2025 11:40 AM EDT us Win Citlali LAB BLOOD ORDERABLES Final Resul t [facility] [address] [place] [address], [place] [phone] * (ABNORMAL) CBC auto differential (01/23/2025 11:40 AM EDT) WBC 7.9 4.8 - 10.8 K/mcL LAB HEMETOLOGY METHOD 01/23/2025 3:34 PM EDT [facility] RBC 4.10 3.80 - 4.80 M/mcL LAB HEMETOLOGY METHOD 01/23/2025 3:34 PM EDT [facility] Hemoglobin 12.9 11.5 - 16.0 g/dL LAB HEMETOLOGY METHOD 01/23/2025 3:34 PM EDT [facility] Hematocrit 38.6 35.0 - 47.0 % LAB HEMETOLOGY METHOD 01/23/2025 3:34 PM EDT [facility] MCV 93.7 79.0 - 98.0 FL LAB HEMETOLOGY METHOD 01/23/2025 3:34 PM EDT [facility] MCH 31.3 27.0 - 32.0 pcg LAB HEMETOLOGY METHOD 01/23/2025 3:34 PM EDT [facility] MCHC 33.4 32.0 - 37.0 g/dL LAB HEMETOLOGY METHOD 01/23/2025 3:34 PM EDT [facility] RDW 12.8 11.0 - 15.0 % LAB HEMETOLOGY METHOD 01/23/2025 3:34 PM EDT [facility] Platelets 353 130 - 400 K/mcL LAB HEMETOLOGY METHOD 01/23/2025 3:34 PM EDT [facility] MPV 9.5 7.0 - 11.0 FL LAB HEMETOLOGY METHOD 01/23/2025 3:34 PM EDT [facility] NRBC 0.0 <1.0 % LAB [facility]OLOGY [facility]25 [facility] NRBC Absolute 0.00 <0.10 K/mcL LAB HEMETOLOGY METHOD 01/23/2025 3:34 PM [facility] Neutrophils Relative 56.9 % LAB HEMETOLOGY METHOD 01/23/2025 3:34 PM [facility] Lymphocytes Relative 31.9 % LAB HEMETOLOGY METHOD 01/23/2025 3:34 PM [facility] Monocytes Relative 7.2 % LAB HEMETOLOGY METHOD 01/23/2025 3:34 PM [facility] Eosinophils Relative 2.9 % LAB HEMETOLOGY METHOD 01/23/2025 3:34 PM [facility] Basophils Relative 0.6 % LAB HEMETOLOGY METHOD 01/23/2025 3:34 PM [facility] Immature Granulocytes Relative 0.5 % LAB HEMETOLOGY METHOD 01/23/2025 3:34 PM [facility] Neutrophils Absolute 4.48 1.50 - 7.00 K/mcL LAB HEMETOLOGY METHOD 01/23/2025 3:34 PM EDT [facility] Lymphocytes Absolute 2.51 1.00 - 5.00 K/mcL LAB HEMETOLOGY METHOD 01/23/2025 3:[facility] Monocytes Absolute 0.57 0.20 - 1.00 K/mcL LAB HEMETOLOGY METHOD 01/23/2025 3:34 PM [facility] Eosinophils Absolute 0.23 0.00 - 0.50 K/mcL LAB HEMETOLOGY METHOD 01/23/2025 3:34 PM EDT [facility] Basophils Absolute 0.05 0.00 - 0.20 K/[facility] LAB HEMETOLOGY METHOD 01/23/2025 3:34 PM EDT [facility] Immature Granulocytes Absolute 0.04(H) 0.00 - 0.03 K/[facility] LAB HEMETOLOGY METHOD 01/23/2025 3:34 PM EDT [facility] Blood Venous blood specimen / Unknown Venipuncture / Unknown 01/23/2025 11:40 AM EDT 01/23/2025 11:40 AM EDT Win Minnie LAB BLOOD ORDERABLES Final Resul t Performing Organization Address City/[facility]/ZIP Co de Phone Number [facility] [address] [place] [address], [place] [phone] * Sedimentation rate (01/23/2025 11:40 AM EDT) Sed Rate 12 0 - 30 mm/hr LAB HEMETOLOGY METHOD 01/23/2025 3:54 PM EDT [facility] Blood Venous blood specimen / Unknown Venipuncture / Unknown 01/23/2025 11:40 AM EDT 01/23/2025 11:40 AM EDT Win Hartman LAB BLOOD ORDERABLES Final Resul t Performing Organization Address City/[facility]/ZIP Co de Phone Number [facility] [address] [place] [address], [place] [phone] * C-reactive protein (01/23/2025 11:40 AM EDT) C-Reactive Protein <0.29 <=0.50 mg/dL LAB CHEMISTRY METHOD 01/23/2025 4:49 PM EDT [facility] Blood Venous blood specimen / Unknown Venipuncture / Unknown 01/23/2025 11:40 AM EDT 01/23/2025 11:40 AM EDT Win Godwin LAB BLOOD ORDERABLES Final Resul t Performing Organization Address City/[facility]/ZIP Co de Phone Number [facility] [address] [place] [address], [place] [phone] * Hepatic function panel (01/23/2025 11:40 AM EDT) Total Protein 6.8 6.0 - 8.0 g/dL LAB CHEMISTRY METHOD 01/23/2025 4:49 PM EDT [facility] Albumin 3.9 3.2 - 5.0 g/dL LAB CHEMISTRY METHOD 01/23/2025 4:49 PM EDT [facility] Total Bilirubin 0.3 0.0 - 1.4 mg/dL LAB CHEMISTRY METHOD 01/23/2025 4:49 PM EDT [facility] Bilirubin, Direct <0.1 0.0 - 0.3 mg/dL LAB CHEMISTRY METHOD 01/23/2025 4:49 PM EDT [facility] Bilirubin, Indirect LAB CHEMISTRY METHOD 01/23/2025 4:49 PM EDT [facility] Comment:Unable to calculate Indirect Bilirubin. ALT (SGPT) 28 10 - 60 unit/L LAB CHEMISTRY METHOD 01/23/2025 4:49 PM EDT [facility] AST (SGOT) 15 10 - 42 unit/L LAB CHEMISTRY METHOD 01/23/2025 4:49 PM EDT [facility] Alkaline Phosphatase 54 42 - 121 unit/L LAB CHEMISTRY METHOD 01/23/2025 4:49 PM EDT [facility] Blood Venous blood specimen / Unknown Venipuncture / Unknown 01/23/2025 11:40 AM EDT 01/23/2025 11:40 AM EDT Win Godwin LAB BLOOD ORDERABLES Final Resul t [facility] [address] [place] [address], * Basic metabolic panel (01/23/2025 11:40 AM EDT) Sodium 135 133 - 145 mmol/L LAB CHEMISTRY METHOD 01/23/2025 4:48 PM EDT [facility] Potassium 4.1 3.5 - 5.5 mmol/L LAB CHEMISTRY METHOD 01/23/2025 4:48 PM EDT [facility] Chloride 104 96 - 110 mmol/L LAB CHEMISTRY METHOD 01/23/2025 4:48 PM [facility] CO2 26 21 - 32 mmol/L LAB CHEMISTRY METHOD 01/23/2025 4:48 PM [facility] Anion Gap 5 3 - 11 LAB CHEMISTRY METHOD 01/23/2025 4:48 PM [facility] Glucose 93 70 - 100 mg/dL LAB CHEMISTRY METHOD 01/23/2025 4:48 PM [facility] BUN 13 5 - 25 mg/dL LAB CHEMISTRY METHOD 01/23/2025 4:48 PM [facility] Creatinine 0.56 0.50 - 1.10 mg/dL LAB CHE[facility]STRY METHOD [facility]/23[facility]25 4[facility] eGFR 111 >=60 mL/min/1. 73m2 LAB CHEMISTRY METHOD 01/23/2025 4:48 PM [facility] Comment:Calculation based on the Chronic Kidney Disease Epidemiology Collaboration (CKD-EPI) equation refit without adjustment for race. BUN/Creatinine Ratio 23.2 LAB CHEMISTRY METHOD 01/23/2025 4:48 PM [facility] Calcium 9.2 8.5 - 10.5 mg/dL LAB CHEMISTRY METHOD 01/23/2025 4:48 PM [facility] Blood Venous blood specimen / Unknown Venipuncture / Unknown 01/23/2025 11:40 AM EDT 01/23/2025 11:40 AM EDT us Win S[employer] LAB BLOOD ORDERABLES Final Resul t [facility] [address] [place] [address], [place] [phone] from Last 3 Months Insurance MEDICARE MEDICAID - [place] Care Teams Customer Success Advocate Relationship Specialty Start Date End Date Robert Bernal DO [address] [place] [phone] PCP - General Internal Medicine 12/04/19
--- OUTSIDE RECORDS SUMMARY | 2025-04-14 19:18 | XMS_ITS | Clinical Summary ---
Author Organization [facility] Address [address] [place] [address] Care Team Providers Care Pleater Name Role Phone Robert Bernal Primary Care Provider [phone] Allergies No known active allergies Medications permethrin (ELIMITE) 5% cream Apply to affected area once 60 g 12/07/2024 Active Active Problems Problem Noted Date Diagnosed Date Opioid dependence 02/19/2013 Pain, joint, shoulder 06/28/2009 Encounters Date Type Department Care Team Description 01/26/2025 Telephone [facility] Dermatology [address] [place] [phone] Michelle Scales RN 01/19/2025 7:48 PM EDT - 01/19/2025 10:24 PM EDT Emergency [facility] Emergency Department [address] [place] [address] Jalen Stevens MD Rash (Primary Dx) Discharge Disposition: Home or Self [...] Sign Reading Time Taken Comments Blood Pressure 145/103 01/19/2025 7:59 PM EDT Pulse 90 01/19/2025 7:59 PM EDT Temperature 36.7 C (98 F) 01/19/2025 7:59 PM EDT Respiratory Rate 18 01/19/2025 7:59 PM EDT Oxygen Saturation 97% 01/19/2025 7:59 PM EDT Inhaled Oxygen Concentration - - Weight 61.2 kg (135 lb) 01/19/2025 7:59 PM EDT Height 170.2 cm (5' 7 ) 01/19/2025 7:59 PM EDT Body Mass Index 21.14 01/19/2025 7:59 PM EDT Plan of Treatment Health Maintenance [...] and Follow-Up 04/30/2024 Social Drivers of Health Ethel ual Screening 04/30/2024 Influenza Vaccine (#1) 2024 , 02/12/2019, 05/13/2018, Additional history exists COVID-19 Vaccine (2 - 2024-2 6 season) 2024 08/28/2020 DTaP,Tdap,and Td Vaccines (3 - Td or Tdap) 09/06/2033 09/07/2023, 02/14/2017 Procedures * Due to [place] [employer] law, this organization might not be sharing negative HIV tests. Procedure Name Priority Date/Time Associated Diagnosis Comments COMPREHENSIVE METABOLIC PANEL STAT 01/19/2025 9:09 PM EDT CBC AUTO DIFFERENTIAL STAT 01/19/2025 9:09 PM EDT from Last 3 Months Results * Due to [place] [employer] law, this organization might not be sharing negative HIV tests. * (ABNORMAL) CBC Auto Differential (01/19/2025 9:09 PM EDT) WBC 11.0(H) 4.8 - 10.8 10*3/uL 01/19/2025 9:17 PM EDT [facility] RBC 4.30 4.20 - 5.40 10*6/uL 01/19/2025 9:17 PM EDT [facility] Hemoglobin 13.7 11.7 - 15.5 g/dL 01/19/2025 9:17 PM EDT [facility] Hematocrit 38.1 35.7 - 45.8 % 01/19/2025 9:17 PM EDT [facility] MCV 88.6 81.0 - 99.0 fL 01/19/2025 9:17 PM EDT [facility] MCH 31.9 26.0 - 34.0 pg 01/19/2025 9:17 PM EDT [facility] MCHC 36.0 31.0 - 36.0 g/dL 01/19/2025 9:17 PM EDT [facility] RDW 12.1 12.0 - 15.0 % 01/19/2025 9:17 PM EDT [facility] RDW Standard Deviation 39.4 36.4 - 46.3 fL 01/19/2025 9:17 PM EDT [facility] Platelets 371 140 - 440 10*3/uL 01/19/2025 9:17 PM EDT [facility] MPV 9.0(L) 9.4 - 12.3 fL 01/19/2025 9:17 PM EDT [facility] Neutrophil % 46.8(L) 50.0 - 75.0 % 01/19/2025 9:17 PM EDT [facility] Immature Grans % 0.4 0.0 - 0.9 % 01/19/2025 9:17 PM EDT [facility] Lymphocyte % 42.6 20.0 - 44.0 % 01/19/2025 9:17 PM EDT [facility] Monocyte % 6.4 0.0 - 14.0 % 01/19/2025 9:17 PM EDT [facility] Eosinophil % 3.3 0.0 - 5.0 % 01/19/2025 9:17 PM EDT [facility] Basophil % 0.5 0.0 - 2.0 % 01/19/2025 9:17 PM EDT [facility] Neutrophil # 5.12 1.80 - 7.70 10*3/uL 01/19/2025 9:17 PM EDT [facility] Immature Grans # 0.04(H) 0.00 - 0.03 10*3/uL 01/19/2025 9:17 PM EDT [facility] Lymphocyte # 4.70 1.00 - 4.75 10*3/uL 01/19/2025 9:17 PM EDT [facility] Monocyte # 0.70(H) 0.00 - 0.60 10*3/uL 01/19/2025 9:17 PM EDT [facility] Eosinophil # 0.40 0.00 - 0.80 10*3/uL 01/19/2025 9:17 PM EDT [facility] Basophil # 0.10 0.00 - 0.20 10*3/uL 01/19/2025 9:17 PM EDT [facility] nRBC % 0.0 0 - 0 /100 WBCs 01/19/2025 9:17 PM EDT [facility] nRBC # <0.01 0.00 - 0.13 10*3/uL 01/19/2025 9:17 PM EDT [facility] Blood Structure of peripheral vein / Unknown Venipuncture / Unknown 01/19/2025 9:09 PM EDT 01/19/2025 9:14 PM EDT us Jalen Stevens MD LAB BLOOD ORDERABLES Final Result [facility] [address] [place] [id number], [place] [phone] * (ABNORMAL) CMP - Comprehensive Metabolic Panel (01/19/2025 9:09 PM EDT) NA 135(L) 136 - 145 mmol/L 01/19/2025 9:46 PM EDT [facility] K 4.2 3.5 - 5.1 mmol/L 01/19/2025 9:46 PM EDT [facility] Cl 99 98 - 109 mmol/L 01/19/2025 9:46 PM EDT [facility] CO2 26 22 - 32 mmol/L 01/19/2025 9:46 PM EDT [facility] Anion Gap 14 >=0 01/19/2025 9:46 PM EDT [facility] Glucose 101(H) 60 - 99 mg/dL 01/19/2025 9:46 PM EDT [facility] Creatinine 0.56 0.50 - 1.12 mg/dL 01/19/2025 9:46 PM EDT [facility] Calcium 9.7 8.4 - 10.4 mg/dL 01/19/2025 9:46 PM EDT [facility] Total Protein 6.9 6.6 - 8.7 g/dL 01/19/2025 9:46 PM EDT [facility] Albumin 4.3 3.5 - 5.0 g/dL 01/19/2025 9:46 PM EDT [facility] Bilirubin, Total 0.1(L) 0.2 - 1.2 mg/dL 01/19/2025 9:46 PM EDT [facility] Alkaline Phosphatase 58 40 - 129 U/L 01/19/2025 9:46 PM EDT [facility] AST 17 0 - 33 U/L 01/19/2025 9:46 PM EDT [facility] ALT 19 <=33 U/L 01/19/2025 9:46 PM EDT [facility] BUN 12 6 - 20 mg/dL 01/19/2025 9:46 PM EDT [facility] eGFR >90 >=60 mL/min/1. 73m2 01/19/2025 9:46 PM EDT [facility] Comment:The estimated glomer ular filtration rate (eGFR) is calculated using a new formula developed by the NKF-ASN task force to eliminate race-based correction factors. The new formula uses serum/plasma creatinine, age, and gender to determine eGFR. A value below 60mls/min might indicate kidney disease and will be flagged. For additional information, see Jh et al, Am J Kidney Dis. 2021;79(2):268- 288, A Unifying Approach for GFR estimation: Recommendations of the NKF-ASN Task Force on Reassessing the Inclusion of Race in Diagnosing Kidney Disease . Globulin, Total 2.6 2.1 - 4.2 g/dL 01/19/2025 9:46 PM EDT [facility] A/G Ratio 1.7 1.5 - 3.0 01/19/2025 9:46 PM EDT [facility] Blood Structure of peripheral vein / Unknown Venipuncture / Unknown 01/19/2025 9:09 PM EDT 01/19/2025 9:15 PM EDT Jalen Stevens MD LAB BLOOD ORDERABLES Final Result Performing Organization Address City/State/[facility] Co de Phone Number [facility] [address] [place] [address], [place] [phone] from Last 3 Months Insurance [facility] MEDIC[facility] Care Teams Pleater Relationship Specialty Start Date End Date Robert Bernal [address] [place] [id number] PCP - General Internal Medicine 12/07/24
--- OUTSIDE RECORDS SUMMARY | 2025-04-14 19:19 | XMS_ITS | Patient Health Record ---
Author Organization [facility] Address [address] [place] [address] Care Team Providers Care Music Instructor Name Role Phone Santo Bhandari Primary Care [...] B [address] [place], [place] [id number] [phone] [id number] Roma Flores Self - patient is the insured [place] [employer] Medicaid [address] [place] [address] [phone] [id number] Roma Flores Self - patient is the insured
--- OUTSIDE RECORDS SUMMARY | 2025-04-14 19:19 | XMS_ITS | Encounter Summary ---
Author Organization [facility] Address [address] [place] [phone] Phone Care Team Providers Care Printer Assistant Name Role Phone Pcp, Not Required Primary Care Provider Unavaila ble Encounter Details Date Type Department Care Team ([facility] st Contact Info) Description 11/28/2016 Ancillary Orders Colt Lou M.D. 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 It is not the complete legal health record.[facility]
--- OUTSIDE RECORDS SUMMARY | 2025-04-14 19:19 | XMS_ITS | Clinical Summary ---
Author Organization [facility] Address [address] [place], [place] [id number] Phone Care Team Providers Care Post Manager Name Role Phone Pcp, Not Required [...] Medical Devices Not on file Insurance [address] [place] [id number] [facility] [email or web address] [address] [place] [phone] [facility] [employer] [facility] [employer] [address] [place] [id number] [facility] [place] [employer] [place] [employer] [facility] [place] [employer] [facility] [employer] Care Teams Post Manager Relationship Specialty Start Date End Date Pcp, Not Required PCP - General 11/27/16 Additional Source Comments The information contained in this document represents components of the legal health record. It is not the complete legal health record.[facility]
--- OUTSIDE RECORDS SUMMARY | 2025-04-14 19:19 | XMS_ITS | Clinical Summary ---
Author Organization [employer] [facility] Address [address] [facility] [place] [address] Care Team Providers Care Repairer Cylinder Heads Name Role Phone Kristin Schuster Primary Care [...] Adults 18 yrs or above (or HM Modifier)([facility]) 08/10/1991 Hepatitis C Virus Infection in Adolescents and Adults: Screening (or Modifier) ([facility]) 08/10/1991 SDOH Screening Reminder: Ethel verma for all adults ([facility]) 08/10/1991 Tobacco Smoking Cessation: i n Adults excluding Women: Behavioral and Pharmacotherapy Interventions ([facility]) 08/10/1991 Cervical Cancer Screenin 1-65 yrs of age (or Modifier) 1994 Cervical Cancer Screening: P ap every 3 yrs pts age 21-65 1994 Cervical Cancer: Pap Screeni ng with Modifier timing ([facility]) 1994 Cervical Cancer: hrHPV alone or with cotesting Pap for Pts 30-65yrs screening every 5yrs ([facility]) 1994 Colorectal Cancer Screening 45 -75 Yrs (or HM Modifier) 2018 Colorectal Cancer: FLEXIBLE SIGMOIDOSCOPY Screening every 5 yrs 2018 Colorectal Cancer: Fecal Imm unochemical Test (FIT) Annually [facility] 2018 Colorectal Cancer: High-sens itivity gFOBT Screening Annually [facility] 2018 Colorectal Cancer: Stool Col oguard Screening every 3 yrs 2018 Colorectal Cancer:CT Colonog shiloh Screening every 5 yrs 2018 Breast Cancer: Screening Ethel ually age 50-74 yrs (or HM Modifier)([facility]) 08/10/2023 Lung Cancer: Screening Annua lly in adults aged 50 to 80 years (or HM Modifiers)([facility]) 08/10/2023 Pneumococcal Vaccination Scr eening: Patients 50+ yrs of age ([facility]) (2 of 2 - PCV) 08/10/2023 09/08/2015 Zoster/Shingles Vaccine Seri es Screening: Adults aged 18+ yrs (or HM Modifiers)([facility]) (1 of 2) 08/10/2023 Flu Vaccination: Yearly for ages 18mos through 64 years (or Modifier)([facility]) 11/28/2024 05/13/2018 COVID-19 Vaccine Screening: Initial Series and Booster Status ([facility]) (1 - 2024- season) 2024 DTaP/Tdap/Td Vaccines ([facility]) (2 - Td or Tdap) 02/14/2017 Pneumococcal Vaccination Scr eening: Pts 0-19 & 19-49 yrs of age ([facility]) Discontinued 09/08/2015 Medical Devices Not on file Care Teams Repairer Cylinder Heads Relationship Specialty Start Date End Date Kristin Schuster PA [address] [place] [phone] PCP - General Physician Unit Educator 01/04/19
== END 2025-04-14 15:29 | disposition home or self-care (01) ==
LOC: HO.HSMS 14:57
PROVIDERS: PCP Internal Medicine; Visit Provider Psychiatry & Neurology Neurology
DX: G43.719 Chronic migraine without aura, intractable, without status migrainosus (principal)
CPT/HCPCS: 64615

== ENCOUNTER → 2025-04-14 14:57 | Outpatient (BNVA) | payer MEDICARE, MEDICAID, SELFPAY | PROVIDERS: PCP Internal Medicine; Visit Provider Psychiatry & Neurology Neurology | DX: G43.719 Chronic migraine without aura, intractable, without status migrainosus (principal) | CPT/HCPCS: 64615; 99211; J0585 ==